=== PATIENT | male | born 1980 | race Caucasian/White ===

== ENCOUNTER 2020-12-28 13:25 | Inpatient (IN) | payer BC ==
[~2020-12-28] VITALS: Ht 187.9 cm; Wt 87.4 kg
[~2020-12-28 13:25] MED LIST: ACET-2650 PO; ALPRAZolam 0.25 MG (XANAX) TAB PO PRN; AMPH20CA5 PO; BISACODYL 10 MG SUPP (DULCOLAX) PR PRN; CALCIUM CARBONATE 500 MG (TUMS) TAB.CHEW PO PRN; DOCUSATE SODIUM 100 MG (COLACE) CAP PO PRN; ENOX30DI4 SQ; FLEET ENEMA ADULT 1 EA BTL PR PRN; GABA-486 PO; IPRA3AMP31 IH; LACTULOSE SYRUP 10GM/15ML (ENULOSE) 30ML UDC PO PRN; LOPERAMIDE 2 MG (IMODIUM) TABLET PO PRN; MAGN400O7 PO; METH-732 PO; ONDA4TAB11 PO; ONDANSETRON 4 MG (ZOFRAN) ORAL DISSOLVE TAB PO PRN; OXC5T PO; POLY17PO6 PO; SENN-145 PO; diphenhydrAMINE 25 MG TAB (BENADRYL) PO PRN; guaiFENesin/CODEINE (ROBITUSSIN AC) 10ML UDC PO PRN
--- OUTSIDE RECORDS SUMMARY | 2020-12-28 13:48 | XMS REPORT ---
Author Author Kahlil Mayo Organization [facility] Address [address] [place], [place] [id number] Care Team Providers Care Digital Computer Systems Analyst Name Role Phone Michelle Mayo PCP Michelle Mayo PreferredProvider Allergies and Adverse Reactions Not available. Plan of Treatment Not available. Medications Active Name Start Date Estimated Completion Date SIG Co mments Adderall XR 20 mg oral capsule,extended release 24hr 11/01/2020 12/01/2020 take 1 capsule (20 mg) by oral route once daily in the morning upon awakening for 30 days Discontinued Name Start Date Discontinued Date SIG Comments Adderall 10 mg oral tablet 08/10/2020 take 1 tablet (10 mg) by oral route 2 times per day before breakfast and at noon Problem List Description Status Onset Attention deficit hyperactivity disorder (ADHD), predo minantly inattentive type Active 04/17/2020 Vital Signs Date Time BP-Sys(mm[Hg] BP-[place](mm[Hg]) HR(bpm) RR(rpm) Temp WT HT HC BMI BSA BMI Percentile O2 Sat(%) 08/10/2020 1:10:00 PM 142 mm[Hg] 80 mm[Hg] 100 {beats}/min 98.1 F 204.75 lbs 74 in 26.2881 kg/m2 2.2020 m2 99 % 04/13/2020 2:20:00 PM 122 mm[Hg] 83 mm[Hg] 105 {beats}/min 16 rpm 99 F 217 lbs 74 in 27.86 kg/m2 2.27 m2 96 % Social History Name Description Comments Tobacco Never smoker History of Procedures Not available. Results Summary Not available. History Of Immunizations Not available. History of Past Illness Name Date of Onset Comments Attention deficit hyperactivity disorder (ADHD), predo minantly inattentive type 04/17/2020 Attention deficit hyperactivity disorder (ADHD), predo minantly inattentive type Fe2020 2:22PM Attention deficit hyperactivity disorder (ADHD), predo minantly inattentive type Aug 10 2020 1:14PM Attention deficit hyperactivity disorder (ADHD), predo minantly inattentive type Nov 14 2020 11:21AM Payers Insurance Name Company Name Plan Name Plan Number Policy Number [employer] Group [id number] N/A History of Encounters Visit Date Visit Type Provider 11/09/2020 Office visit Michelle CALDERON 08/10/2020 Office visit Michelle CALDERON 04/13/2020 Office visit Michelle CALDERON
[2020-12-28 13:57] VITALS: BP 134/89
[2020-12-28] MEDS ORDERED: RT-ALBUTEROL/IPRATROPIUM 3 ML (DUONEB) VIAL IH PRN (14:15)
[2020-12-28] MEDS ORDERED: ONDANSETRON 4 MG (ZOFRAN) ORAL DISSOLVE TAB PO PRN (14:15)
[2020-12-28] MEDS ORDERED: NON-FORMULARY MEDICATION 1 EA EA (Acetaminophen (Tylenol Arthritis) 650 MG) PO PRN (14:15)
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
[2020-12-28] MEDS ORDERED: LACTULOSE SYRUP 10GM/15ML (ENULOSE) 30ML UDC PO ONE (16:45)
[2020-12-28] MEDS ORDERED: SENNA W/DOCUSATE (SENOKOT S) TABLET PO ONE (16:45)
[2020-12-28] MEDS ORDERED: BISACODYL 10 MG SUPP (DULCOLAX) PR ONE (16:45)
[2020-12-28] MEDS ORDERED: polyethylene glycoL POWDER 17 GM (MIRALAX) PACK PO ONE ×2 (16:45→17:30)
[2020-12-28] MEDS ORDERED: FLU QUADRIvalent (3YOA+) 60 mcg/0.5 ml 2021-22(AFLURIA) IM ONE (16:45)
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
[2020-12-28] MEDS ORDERED: MAGNESIUM CITRATE 300 ML BTL PO PRN (17:00)
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
[2020-12-28] MEDS: ENOXAPARIN 30 MG/0.3 ML (LOVENOX) SYR SQ SCH (18:03)
[2020-12-28] MEDS: ACETAMINOPHEN 325 MG TABLET PO PRN (18:30)
[2020-12-28 20:20] VITALS: BP 131/78
[2020-12-28] MEDS ORDERED: polyethylene glycoL POWDER 17 GM (MIRALAX) PACK PO SCH (21:00)
[2020-12-28] MEDS: polyethylene glycoL POWDER 17 GM (MIRALAX) PACK PO SCH (21:45)
[2020-12-28] MEDS: SENNA W/DOCUSATE (SENOKOT S) TABLET PO SCH ×2 (22:00→22:01)
[2020-12-28] MEDS: DOCUSATE SODIUM 100 MG (COLACE) CAP PO SCH (22:01)
[2020-12-28] MEDS: METHOCARBAMOL 750 MG (ROBAXIN) TAB PO SCH (22:02)
[2020-12-28] MEDS: GABAPENTIN 100 MG (NEURONTIN) CAP PO SCH (22:02)
[2020-12-29] MEDS: ACETAMINOPHEN 325 MG TABLET PO PRN ×2 (03:26→18:00)
[2020-12-29 05:37] LABS: BASOPHILS # (AUTO) 0.1 10^3/uL (0.0-0.1); BASOPHILS % (AUTO) 1 % (0-10); EOSINOPHILS # (AUTO) 0.4 10^3/uL (0.0-0.3); EOSINOPHILS % (AUTO) 3 % (0-10); HEMATOCRIT 31 % (40-54); HEMOGLOBIN 10.4 g/dL (13.3-17.7); LYMPHOCYTES # (AUTO) 1.7 10^3/uL (1.0-4.0); LYMPHOCYTES % (AUTO) 14 % (12-44); MEAN CORPUSCULAR HEMOGLOBIN 28 pg (25-34); MEAN CORPUSCULAR HGB CONC 33 g/dL (32-36); MEAN CORPUSCULAR VOLUME 84 fL (80-99); MEAN PLATELET VOLUME 8.2 fL (9.0-12.2); MONOCYTES # (AUTO) 1.1 10^3/uL (0.0-1.0); MONOCYTES % (AUTO) 9 % (0-12); NEUTROPHILS # (AUTO) 8.7 10^3/uL (1.8-7.8); NEUTROPHILS % (AUTO) 72 % (42-75); PLATELET COUNT 687 10^3/uL (130-400); WHITE BLOOD COUNT 12.2 10^3/uL (4.3-11.0)
[2020-12-29 05:50] LABS: ALBUMIN 3.4 GM/DL (3.2-4.5); POTASSIUM 4.4 MMOL/L (3.6-5.0)
[2020-12-29] MEDS: ENOXAPARIN 30 MG/0.3 ML (LOVENOX) SYR SQ SCH (05:51)
[2020-12-29 05:52] LABS: CALCIUM 9.4 MG/DL (8.5-10.1)
[2020-12-29 05:55] LABS: BILIRUBIN,TOTAL 0.6 MG/DL (0.1-1.0)
[2020-12-29 05:56] LABS: CREATININE SERUM 0.76 MG/DL (0.60-1.30)
[2020-12-29 08:00] VITALS: BP 133/74
[2020-12-29] MEDS: METHOCARBAMOL 750 MG (ROBAXIN) TAB PO SCH ×3 (08:09→21:04)
[2020-12-29] MEDS: SENNA W/DOCUSATE (SENOKOT S) TABLET PO SCH ×4 (08:10→21:04)
[2020-12-29] MEDS: DOCUSATE SODIUM 100 MG (COLACE) CAP PO SCH ×2 (08:10→21:04)
[2020-12-29] MEDS: GABAPENTIN 100 MG (NEURONTIN) CAP PO SCH ×3 (08:10→21:03)
[2020-12-29] MEDS: [UNRECOGNIZED DRUG - OTHER] PO SCH (09:00)
[2020-12-29] MEDS: DEXTROAMPHETAMINE PO SCH (09:00)
[2020-12-29] MEDS: AMPHETAMINE PO SCH (09:00)
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
[2020-12-29] MEDS: polyethylene glycoL POWDER 17 GM (MIRALAX) PACK PO SCH ×2 (09:52→21:05)
[2020-12-29] MEDS: MILK OF MAGNESIA 400 MG/5 ML 30 ML UDC PO SCH (09:52)
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
--- NOTE | 2020-12-29 11:53 | Occupational Ther Daily Note ---
OT Current Status-Daily Note Subjective Pt alert, lying in bed. Pt agrees to therapy. Mental Status/Objective Patient Orientation: Person, Place, Time, Situation Attachments: Other-See Comments (TLSO, c-collar) ADL-Treatment PT/OT cotreat ([id number]), 2 clinicians required to decrease fall risk, increase transfer/mobility, decrease pain and anxiety. OT focusing on ADLs and functional mobility while PT focusing on transfers and bed mobility. Pt agrees to shower. C-collar in place throughout shower and was replaced with dry one at end of shower. See PT notes for bed mobility. Pt transferred from EOB to shower chair with cutout using FWW, min A. Shower chair rolled into shower and pt able to complete upper body, aida area, B upper legs. Pt required assist (SO assisted pt in shower) while sitting on shower chair with buttocks and B lower legs and feet. Pt required assisted with lower body. Pt was assisted with C- collar and TLSO. Assisted pt with donning shirt, L arm, head the R arm. Pt able to thread pants over feet then stood with CGA for balance while pt hiked pants over hips. Assist with donning L sock. SO assisted pt with oral care and grooming, set up. Assist x2 for EOB to supine due to pt's increased anxiety. Therapy Code Descriptions/Definitions Functional [place] Measure: 0=Not Assessed/NA 4=Minimal Assistance 1=Total Assistance 5=Supervision or Setup 2=Maximal Assistance 6=Modified [place] 3=Moderate Assistance 7=Complete IndependenceSCALE: Activities may be completed with or without assistive devices. 9-Gyvzavocum-jkiapnf completes the activity by him/herself with no assistance from a helper. 5-Set-up or Clean-up Assistance-helper sets up or cleans up; patient completes activity. [place] assists only prior to or following the activity. 4-Supervision or Touching Assistance-helper provides verbal cues and/or touching/steadying and/or contact guard assistance as patient completes activity. Assistance may be provided throughout the activity or intermittently. 3-Partial/Moderate Assistance-helper does LESS THAN HALF the effort. [place] lifts, holds or supports trunk or limbs, but provides less than half the effort. 2-Substantial/Maximal Assistance-helper does MORE THAN HALF the effort. [place] lifts or holds trunk or limbs and provides more than half the effort. 8-Eyclzdacg-oybpvj does ALL the effort. Patient does none of the effort to complete the activity. Or, the assistance of 2 or more helpers is required for the patient to complete the activity. If activity was not attempted, code reason: 7-Patient Refused. 9-Not Applicable-not attempted and the patient did not perform the activity before the current illness, exacerbation or injury. 10-Not Attempted due to Environmental Limitations-(lack of equipment, weather restraints, etc.). 88-Not Attempted due to Medical Conditions or Safety Concerns. Oral Hygiene (QC): 5 Bathing Location: L Arm, R Arm, L Upper Leg, R Upper Leg, Chest, Abdomen Shower/Bathe Self (QC): 3 (Mod A) Upper Body Dressing (QC): 2 (Max A) Lower Body Dressing (QC): 2 (Max A) On/Off Footwear: 2 Pt demonstrated and verbalized anxiety throughout session requiring frequent breaks to use personal calming strategies before continuing to next task. Education OT Patient Education: Exercise program Teaching Recipient: Patient, Significant Other Teaching Methods: Demonstration, Handout, Discussion Response to Teaching: Verbalize Understanding, Return Demonstration OT Short Term Goals Short Term Goals Time Frame: Jan 04, 2021 Eatin Oral hygiene: 4 Toileting hygiene: 3 Shower/bathe self: 3 Upper body dressin Lower body dressin Putting on/taking off footwear: 5 OT Senior Windows Administrator Goals Shelter Goals Time Frame: Jan 13, 2021 Eating (QC): 6 Oral Hygiene (QC): 6 Toileting Hygiene (QC): 6 Shower/Bathe Self (QC): 5 Upper Body Dressing (QC): 5 Lower Body Dressing (QC): 5 On/Off Footwear (QC): 6 1=Demonstrate adherence to instructed precautions during ADL tasks. 2=Patient will verbalize/demonstrate understanding of assistive devices/modifications for ADL. 3=Patient will improve strength/tolerance for activity to enable patient to perform ADL's. OT Education/Plan Problem List/Assessment Assessment: Decreased Activ Tolerance, Dependent Transfers, Impaired Bed Mobility, Impaired Funct Balance, Impaired Self-Care Skills Discharge Recommendations Plan/Recommendations: Continue POC Treatment Plan/Plan of Care Patient would benefit from OT for education, treatment and training to promote independence in ADL's, mobility, safety and/or upper extremity function for ADL's. Plan of Care: ADL Retraining, Functional Mobility, Group Exercise/Act as Ind, Orthotic Fitting/Training, UE Funct Exercise/Act Treatment Duration: Jan 13, 2021 Frequency: At least 5 of 7 days/Wk (IRF) Estimated Hrs Per Day: 1.5 hours per day Agreement: Yes Rehab Potential: Fair Time/GCodes Start Time: 10:30 Stop Time: 12:00 Total Time Billed (hr/min): 90 Billed Treatment Time 1 Visit- ADL 6 (90 min) PITA MENESES Dec 29, 2020 11:53
--- NOTE | 2020-12-29 12:08 | Physical Therapy Daily Note ---
PT Daily Note-Current Subjective Pt laying Supine in bed upon arrival. S/O present. Pt agrees to PT/OT co- treat. Pain Location Body Site: Side Pain Description: Ache Mental Status Patient Orientation: Person, Place, Time, Situation Attachments: Other-See Comments (TLSO Brace & Cervical Collar) Transfers SCALE: Activities may be completed with or without assistive devices. 2-Jyabahnqeh-muovrvt completes the activity by him/herself with no assistance from a helper. 5-Set-up or Clean-up Assistance-helper sets up or cleans up; patient completes activity. [place] assists only prior to or following the activity. 4-Supervision or Touching Assistance-helper provides verbal cues and/or touchin g/steadying and/or contact guard assistance as patient completes activity. Assistance may be provided throughout the activity or intermittently. 3-Partial/Moderate Assistance-helper does LESS THAN HALF the effort. [place] lifts, holds or supports trunk or limbs, but provides less than half the effort. 2-Substantial/Maximal Assistance-helper does MORE THAN HALF the effort. [place] lifts or holds trunk or limbs and provides more than half the effort. 9-Txvpaswbr-tutcsg does ALL the effort. Patient does none of the effort to complete the activity. Or, the assistance of 2 or more helpers is required for the patient to complete the activity. If activity was not attempted, code reason: 7-Patient Refused. 9-Not Applicable-not attempted and the patient did not perform the activity before the current illness, exacerbation or injury. 10-Not Attempted due to Environmental Limitations-(lack of equipment, weather restraints, etc.). 88-Not Attempted due to Medical Conditions or Safety Concerns. Lying to Sitting/Side of Bed(Q: 3 Sit to Stand (QC): 3 Weight Bearing Right Lower Extremity: Right Non Weight Bearing Exercises Supine Ex: Ankle pumps, Quad Set, Glut sets, Heel Slides, Straight leg raise, Hip abd/add Supine Reps: 15 Seated Therapy Exercises: Ankle pumps, Long arc quads, Hip flexion Seated Reps: 15 Treatments Pt completes Supine EX in bed to prepare for get out of bed. PT/OT cotreat ([id number]), 2 clinicians required to decrease fall risk, increase transfer/mobility, decrease pain and anxiety. OT focusing on ADLs and functional mobility while PT focusing on transfers and bed mobility. Pt agrees to shower. C-collar in place throughout shower and was replaced with dry one at end of shower. See PT notes for bed mobility. Pt transferred from EOB to shower chair with cutout using FWW, min A. Shower chair rolled into shower and pt able to complete upper body, aida area, B upper legs. Pt required assist (SO assisted pt in shower) while sitting on shower chair with buttocks and B lower legs and feet. Pt required assisted with lower body. PT departs and OT continu es tx. [id number]: Pt is given and reviews written HEP for Supine & Seated Ex. Pt resting in bed w/All needs met, call light in hand. Assessment Current Status: Good Progress Pt is sore and reports discomfort with moving. Pt is motivated and wants to complete exercise & tx to progress for home. PT Short Term Goals Short Term Goals Time Frame: Jan 18, 2021 Roll Left & Right: 4 Sit to lyin Lying to sitting on side of be: 4 Sit to stand: 4 Chair/joh-js-sxwen transfer: 4 Toilet transfer: 4 Car transfer: 4 Walk 10 feet: 3 Walk 50 feet with two turns: 3 Walk 150 feet: 3 Walking 10ft on uneven surface: 3 1 step (curb): 3 4 steps: 3 Picking up objects: 3 Does pt use a wc or scooter: Yes Wheel 50ft w/2 turns: 6 Wheel 150 feet: 6 Type: Manual PT Advertising Campaign Manager Goals Prison Goals PT Prison Goals Time Frame: Feb 01, 2021 Roll Left & Right (QC): 5 Sit to Lying (QC): 5 Lying-Sitting on Side/Bed(QC): 5 Sit to Stand (QC): 5 Chair/Pxz-bd-Zgjos Xfer(QC): 5 Toilet Transfer (QC): 5 Car Transfer (QC): 5 Does the Patient Walk: Yes Walk 10 feet (QC): 5 Walk 50ft with 2 Turns (QC): 5 Walk 150 ft (QC): 4 Walking 10ft on Uneven Surface: 4 1 Step (curb) (QC): 4 4 Steps (QC): 4 12 Steps (QC): 4 Picking up an Object (QC): 4 Does the Pt use WC or Scooter?: Yes Wheel 50 feet with 2 turns (QC: 6 Type: Manual Wheel 150 feet: 6 Type: Manual PT Plan Problem List Problem List: Activity Tolerance, Functional Strength, Transfer Treatment/Plan Treatment Plan: Continue Plan of Care Treatment Plan: Bed Mobility, Education, Functional Activity Janki, Functional Strength, Group Therapy, Gait, Safety, Therapeutic Exercise, Transfers Treatment Duration: Mar 08, 2021 Frequency: At least 5 of 7 days/Wk (IRF) Estimated Hrs Per Day: 1.5 hours per day Patient and/or Family Agrees t: Yes Safety Risks/Education Patient Education: Transfer Techniques, Correct Positioning Teaching Recipient: Patient Teaching Methods: Discussion Response to Teaching: Verbalize Understanding Time/GCodes Time In: 1015 Time Out: 1100 Total Billed Treatment Time: 45 Total Billed Treatment 1, EX (15m) & FA x2 (30m) Co-treat w/OT for 30m ([id number]) [id number]: 1, EX (15m) KELI ALEXANDER SHELL ASSEMBLER Dec 29, 2020 12:08
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
[2020-12-29] MEDS ORDERED: ALPRAZolam 0.5 MG (XANAX) TAB PO PRN (18:15)
[2020-12-29 19:52] VITALS: BP 120/59
[2020-12-29] MEDS: DULoxetine 30 MG (CYMBALTA) CAP PO SCH (21:02)
[2020-12-29] MEDS: MELATONIN 3 MG TABLET PO PRN (21:03)
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
[2020-12-30 07:49] VITALS: BP 138/73
[2020-12-30] MEDS: DULoxetine 30 MG (CYMBALTA) CAP PO SCH ×2 (07:54→21:15)
[2020-12-30] MEDS: METHOCARBAMOL 750 MG (ROBAXIN) TAB PO SCH ×3 (07:54→21:15)
[2020-12-30] MEDS: ENOXAPARIN 40 MG/0.4 ML (LOVENOX) SYR SC SCH (07:55)
[2020-12-30] MEDS: GABAPENTIN 100 MG (NEURONTIN) CAP PO SCH ×3 (07:55→21:14)
[2020-12-30] MEDS: [UNRECOGNIZED DRUG - OTHER] PO SCH (07:55)
[2020-12-30] MEDS: AMPHETAMINE PO SCH (07:55)
[2020-12-30] MEDS: DEXTROAMPHETAMINE PO SCH (07:55)
[2020-12-30] MEDS: MILK OF MAGNESIA 400 MG/5 ML 30 ML UDC PO SCH (07:56)
[2020-12-30] MEDS: polyethylene glycoL POWDER 17 GM (MIRALAX) PACK PO SCH ×2 (07:56→20:24)
[2020-12-30] MEDS: SENNA W/DOCUSATE (SENOKOT S) TABLET PO SCH ×4 (07:56→21:14)
[2020-12-30] MEDS ORDERED: DULoxetine 30 MG (CYMBALTA) CAP PO SCH (08:00)
--- NOTE | 2020-12-30 10:12 | Physical Therapy Daily Note ---
PT Daily Note-Current Subjective Pt in bed w/ spouse in room upon arrival and agrees to tx. Pt states pain at 4/10 "everywhere" Pain Numeric Pain Scale: 4 Mental Status Patient Orientation: Person, Place, Time, Situation Transfers SCALE: Activities may be completed with or without assistive devices. 8-Wwlnrelkbw-twiffbk completes the activity by him/herself with no assistance from a helper. 5-Set-up or Clean-up Assistance-helper sets up or cleans up; patient completes activity. [place] assists only prior to or following the activity. 4-Supervision or Touching Assistance-helper provides verbal cues and/or to uching/steadying and/or contact guard assistance as patient completes activity. Assistance may be provided throughout the activity or intermittently. 3-Partial/Moderate Assistance-helper does LESS THAN HALF the effort. [place] lifts, holds or supports trunk or limbs, but provides less than half the effort. 2-Substantial/Maximal Assistance-helper does MORE THAN HALF the effort. [place] lifts or holds trunk or limbs and provides more than half the effort. 0-Ipxlnqcjx-slluft does ALL the effort. Patient does none of the effort to complete the activity. Or, the assistance of 2 or more helpers is required for the patient to complete the activity. If activity was not attempted, code reason: 7-Patient Refused. 9-Not Applicable-not attempted and the patient did not perform the activity before the current illness, exacerbation or injury. 10-Not Attempted due to Environmental Limitations-(lack of equipment, weather restraints, etc.). 88-Not Attempted due to Medical Conditions or Safety Concerns. Roll Left & Right (QC): 4 Sit to Lying (QC): 3 Lying to Sitting/Side of Bed(Q: 4 Sit to Stand (QC): 3 Chair/Nrh-wx-Igtnm Xfer(QC): 3 Weight Bearing Right Lower Extremity: Right Non Weight Bearing Gait Training Does the Patient Walk?: Yes Distance: 75' x3 Walk 10 feet (QC): 3 Walk 50 ft with 2 Turns(QC): 3 Gait Persons Needed: 1 Gait Assistive Device: FWW Pt amb 75' x3 with Amada for stability, VC to keep WB precautions, and WC follow. Pt has swing to gait pattern, with NWB on R LE. Wheelchair Training Does the Pt Use a Wheelchair?: Yes Wheel 50 ft with 2 turns (QC): 5 Wheel 150 ft (QC): 5 Type of Wheelchair: Manual Exercises Supine Ex: Quad Set, Hip abd/add Supine Reps: 10 Treatments Pt supine to sit, VC to keep precautions. Pt sit to stand and transfers to WC Amada, then amb 75' x3. Pt fatigues quickly and requires frequent rest breaks. Pt states he feels dizzy during gait, subsides with rest breaks. pt then propels WC 150' and returns to bed. pt completes supine ex and remains in bed with family in room. Pt left with all needs met, call light in hand. Assessment Current Status: Fair Progress Pt improving endurance and gait. Still limited by pain for increasing mobility, and limited by precautions. With supine to sit and longer bouts of gait pt states dizziness that subsides with rest. PT Short Term Goals Short Term Goals Time Frame: Jan 18, 2021 Roll Left & Right: 4 Sit to lyin Lying to sitting on side of be: 4 Sit to stand: 4 Chair/omw-bo-vwbqp transfer: 4 Toilet transfer: 4 Car transfer: 4 Walk 10 feet: 3 Walk 50 feet with two turns: 3 Walk 150 feet: 3 Walking 10ft on uneven surface: 3 1 step (curb): 3 4 steps: 3 Picking up objects: 3 Does pt use a wc or scooter: Yes Wheel 50ft w/2 turns: 6 Wheel 150 feet: 6 Type: Manual PT Long-Term Goals Long-Term Goals PT Long-Term Goals Time Frame: Feb 01, 2021 Roll Left & Right (QC): 5 Sit to Lying (QC): 5 Lying-Sitting on Side/Bed(QC): 5 Sit to Stand (QC): 5 Chair/Uva-ki-Bochz Xfer(QC): 5 Toilet Transfer (QC): 5 Car Transfer (QC): 5 Does the Patient Walk: Yes Walk 10 feet (QC): 5 Walk 50ft with 2 Turns (QC): 5 Walk 150 ft (QC): 4 Walking 10ft on Uneven Surface: 4 1 Step (curb) (QC): 4 4 Steps (QC): 4 12 Steps (QC): 4 Picking up an Object (QC): 4 Does the Pt use WC or Scooter?: Yes Wheel 50 feet with 2 turns (QC: 6 Type: Manual Wheel 150 feet: 6 Type: Manual PT Plan Treatment/Plan Treatment Plan: Continue Plan of Care Treatment Plan: Bed Mobility, Education, Functional Activity Janki, Functional Strength, Group Therapy, Gait, Safety, Therapeutic Exercise, Transfers Treatment Duration: Mar 08, 2021 Frequency: At least 5 of 7 days/Wk (IRF) Estimated Hrs Per Day: 1.5 hours per day Patient and/or Family Agrees t: Yes Time/GCodes Time In: 930 Time Out: 1015 Total Billed Treatment Time: 45 Total Billed Treatment 1, GT x2, EX [employer]IZ [place]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
[2020-12-30] MEDS: DOCUSATE SODIUM 100 MG (COLACE) CAP PO SCH ×2 (11:26→21:14)
--- NOTE | 2020-12-30 11:48 | Occupational Ther Daily Note ---
OT Current Status-Daily Note Subjective Pt laying supine. Pt. reported pain. Nrsg notified. Pt agreed to therapy. Mental Status/Objective Patient Orientation: Person, Place, Time, Situation Attachments: Other-See Comments (TLSO, c-collar) ADL-Treatment Pt supine<-->sit EOB with assist. Pt donned TLSO with Min A, transferred EOB to w/c using FWW for support with Mod A. Pt ambulated to therapy room in standard w/c and engaged in therapeutic exercise while seated to increase strength and improve ADL performance. Monitored amount of resistance and pain and modified exercises accordingly. Yellow theraband was used as resistance, 10 reps were done of B bicep curls, B tricep curls, internal/external rotation, horizontal shoulder abduction. Pt engaged in B shoulder ~100* flexion/extension for 2 min using overhead mica. Pt participated in functional mobility exercise to strengthen UE. After session, pt laying supine with call light/phone in reach. All needs met in room. Notified nursing pt asking for pain medication. Therapy Code Descriptions/Definitions Functional [place] Measure: 0=Not Assessed/NA 4=Minimal Assistance 1=Total Assistance 5=Supervision or Setup 2=Maximal Assistance 6=Modified [place] 3=Moderate Assistance 7=Complete IndependenceSCALE: Activities may be completed with or without assistive devices. 6-Wuazaqwrmb-oedogjw completes the activity by him/herself with no assistance from a helper. 5-Set-up or Clean-up Assistance-helper sets up or cleans up; patient completes activity. [place] assists only prior to or following the activity. 4-Supervision or Touching Assistance-helper provides verbal cues and/or touching/steadying and/or contact guard assistance as patient completes activity. Assistance may be provided throughout the activity or intermittently. 3-Partial/Moderate Assistance-helper does LESS THAN HALF the effort. [place] lifts, holds or supports trunk or limbs, but provides less than half the effort. 2-Substantial/Maximal Assistance-helper does MORE THAN HALF the effort. [place] lifts or holds trunk or limbs and provides more than half the effort. 8-Rylpnlhvu-gbfnzd does ALL the effort. Patient does none of the effort to complete the activity. Or, the assistance of 2 or more helpers is required for the patient to complete the activity. If activity was not attempted, code reason: 7-Patient Refused. 9-Not Applicable-not attempted and the patient did not perform the activity before the current illness, exacerbation or injury. 10-Not Attempted due to Environmental Limitations-(lack of equipment, weather restraints, etc.). 88-Not Attempted due to Medical Conditions or Safety Concerns. OT Short Term Goals Short Term Goals Time Frame: Jan 04, 2021 Eatin Oral hygiene: 4 Toileting hygiene: 3 Shower/bathe self: 3 Upper body dressin Lower body dressin Putting on/taking off footwear: 5 OT Parole Agent Goals Parole Agent Goals Time Frame: Jan 13, 2021 Eating (QC): 6 Oral Hygiene (QC): 6 Toileting Hygiene (QC): 6 Shower/Bathe Self (QC): 5 Upper Body Dressing (QC): 5 Lower Body Dressing (QC): 5 On/Off Footwear (QC): 6 1=Demonstrate adherence to instructed precautions during ADL tasks. 2=Patient will verbalize/demonstrate understanding of assistive devices/modifications for ADL. 3=Patient will improve strength/tolerance for activity to enable patient to perform ADL's. OT Education/Plan Problem List/Assessment Assessment: Decreased Activ Tolerance, Decreased UE Strength, Dependent Transfers, Impaired Funct Balance, Impaired Self-Care Skills, Restricted Funct UE ROM Discharge Recommendations Plan/Recommendations: Continue POC Treatment Plan/Plan of Care Patient would benefit from OT for education, treatment and training to promote independence in ADL's, mobility, safety and/or upper extremity function for ADL's. Plan of Care: ADL Retraining, Functional Mobility, Group Exercise/Act as Ind, Orthotic Fitting/Training, UE Funct Exercise/Act Treatment Duration: Jan 13, 2021 Frequency: At least 5 of 7 days/Wk (IRF) Estimated Hrs Per Day: 1.5 hours per day Agreement: Yes Rehab Potential: Fair Time/GCodes Start Time: 10:30 Stop Time: 11:30 Total Time Billed (hr/min): 60 Billed Treatment Time 1 Visit- Ex 4 (60 min) [id number] PITA MENESES Dec 30, 2020 11:48
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
--- NOTE | 2020-12-30 14:37 | Therapy Group Daily Note ---
Therapy Daily Group Note Patient Education Topic Home Safety, Fall Prevention, Home Safety, Exercises, Other List Below (Floor Transfers) Exercises LE Seated Exercise, UE Exercise Session Ratio (pt:therapist): 3:1 Goal of Session: Home Safety Strategies, UE/LE Strengthing Goal Met for this Session: Yes Pt Benefit of Group: Contributions to Others, F/U Use of Strategies @Home, Increased Functional Safety, Increased Functional Strength, Improved Cognition, Recognition of Peers, Socialization Other/Notes Pt propels self in to [facility] for OT/PT group. Group consisted of introductions (name, place living, trouble in childhood), socialization, seated UE/LE exercises, and educational topics involving home safety, fall risk prevention, and floor transfers. Pt introduced self appropriately, actively listened to peers and complete B UE/LE seated exercises. Pt acknowledged understanding by verbalizing understanding. Pt participated in a cognitive word activity. After session, pt amb back to room. Call light/phone in reach. All needs met in room. Start Time: 13:00 Stop Time: 14:00 Total Billed Treatment Time: 60 Total Billed Treatment 1, GRP MOIZ [place] NUCLEAR INSTRUCTOR Dec 30, 2020 14:37
[2020-12-30 20:40] VITALS: BP 120/64
[2020-12-30] MEDS: MELATONIN 3 MG TABLET PO PRN (21:14)
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
[2020-12-31 08:32] VITALS: BP 132/78
[2020-12-31] MEDS: AMPHETAMINE PO SCH (08:33)
[2020-12-31] MEDS: DEXTROAMPHETAMINE PO SCH (08:33)
[2020-12-31] MEDS: [UNRECOGNIZED DRUG - OTHER] PO SCH (08:33)
[2020-12-31] MEDS: MILK OF MAGNESIA 400 MG/5 ML 30 ML UDC PO SCH (08:34)
[2020-12-31] MEDS: SENNA W/DOCUSATE (SENOKOT S) TABLET PO SCH ×4 (08:34→21:37)
[2020-12-31] MEDS: polyethylene glycoL POWDER 17 GM (MIRALAX) PACK PO SCH ×2 (08:47→21:52)
[2020-12-31] MEDS: ENOXAPARIN 40 MG/0.4 ML (LOVENOX) SYR SC SCH (08:47)
[2020-12-31] MEDS: METHOCARBAMOL 750 MG (ROBAXIN) TAB PO SCH ×3 (08:47→21:38)
[2020-12-31] MEDS: GABAPENTIN 100 MG (NEURONTIN) CAP PO SCH ×3 (08:47→21:37)
[2020-12-31] MEDS: DULoxetine 30 MG (CYMBALTA) CAP PO SCH ×2 (08:47→21:37)
[2020-12-31] MEDS: DOCUSATE SODIUM 100 MG (COLACE) CAP PO SCH ×2 (08:47→21:38)
--- NOTE | 2020-12-31 11:17 | Physical Therapy Daily Note ---
PT Daily Note-Current Subjective Pt in bed upon arrival and agrees to tx. Pt states pain but doesn't rate out of 10 Mental Status Patient Orientation: Person, Place, Time, Situation Transfers SCALE: Activities may be completed with or without assistive devices. 3-Hacjgvwgzg-sbousde completes the activity by him/herself with no assistance from a helper. 5-Set-up or Clean-up Assistance-helper sets up or cleans up; patient completes activity. [place] assists only prior to or following the activity. 4-Supervision or Touching Assistance-helper provides verbal cues and/or touching/steadying and/or contact guard assistance as patient completes activity. Assistance may be provided throughout the activity or intermittently. 3-Partial/Moderate Assistance-helper does LESS THAN HALF the effort. [place] lifts, holds or supports trunk or limbs, but provides less than half the effort. 2-Substantial/Maximal Assistance-helper does MORE THAN HALF the effort. [place] lifts or holds trunk or limbs and provides more than half the effort. 6-Jynzfxfqs-ufbdlf does ALL the effort. Patient does none of the effort to complete the activity. Or, the assistance of 2 or more helpers is required for the patient to complete the activity. If activity was not attempted, code reason: 7-Patient Refused. 9-Not Applicable-not attempted and the patient did not perform the activity before the current illness, exacerbation or injury. 10-Not Attempted due to Environmental Limitations-(lack of equipment, weather restraints, etc.). 88-Not Attempted due to Medical Conditions or Safety Concerns. Sit to Stand (QC): 3 Chair/Tng-sv-Vjbpq Xfer(QC): 3 Amada and VC to keep precautions Weight Bearing Right Lower Extremity: Right Non Weight Bearing Exercises Seated Therapy Exercises: Ankle pumps, Sit to stand, Long arc quads, Chair press-ups, Hip flexion, Hip abd/add, Glut set Seated Reps: 10 Treatments Pt already EOB, sit to stand Amada and transfers to recliner. Pt completes seated ex and is given new HEP forms for seated and supine exercise. Pt remains in recliner with all needs met, call light in hand. Assessment Current Status: Fair Progress Pt limited by pain and precautions. Pt extremely fatigued today PT Short Term Goals Short Term Goals Time Frame: Jan 18, 2021 Roll Left & Right: 4 Sit to lyin Lying to sitting on side of be: 4 Sit to stand: 4 Chair/dbk-do-surbm transfer: 4 Toilet transfer: 4 Car transfer: 4 Walk 10 feet: 3 Walk 50 feet with two turns: 3 Walk 150 feet: 3 Walking 10ft on uneven surface: 3 1 step (curb): 3 4 steps: 3 Picking up objects: 3 Does pt use a wc or scooter: Yes Wheel 50ft w/2 turns: 6 Wheel 150 feet: 6 Type: Manual PT Solar Electric Practitioner Goals Skilled Nursing Goals PT Solar Electric Practitioner Goals Time Frame: Feb 01, 2021 Roll Left & Right (QC): 5 Sit to Lying (QC): 5 Lying-Sitting on Side/Bed(QC): 5 Sit to Stand (QC): 5 Chair/Wcq-wp-Olyrc Xfer(QC): 5 Toilet Transfer (QC): 5 Car Transfer (QC): 5 Does the Patient Walk: Yes Walk 10 feet (QC): 5 Walk 50ft with 2 Turns (QC): 5 Walk 150 ft (QC): 4 Walking 10ft on Uneven Surface: 4 1 Step (curb) (QC): 4 4 Steps (QC): 4 12 Steps (QC): 4 Picking up an Object (QC): 4 Does the Pt use WC or Scooter?: Yes Wheel 50 feet with 2 turns (QC: 6 Type: Manual Wheel 150 feet: 6 Type: Manual PT Plan Treatment/Plan Treatment Plan: Continue Plan of Care Treatment Plan: Bed Mobility, Education, Functional Activity Janki, Functional Strength, Group Therapy, Gait, Safety, Therapeutic Exercise, Transfers Treatment Duration: Mar 08, 2021 Frequency: At least 5 of 7 days/Wk (IRF) Estimated Hrs Per Day: 1.5 hours per day Patient and/or Family Agrees t: Yes Time/GCodes Time In: 1058 Time Out: 1109 Total Billed Treatment Time: 11 Total Billed Treatment 1Anum [place] FOOD AND BEVERAGE SERVER Dec 31, 2020 11:17
[2020-12-31 20:03] VITALS: BP 107/70
[2020-12-31] MEDS: MELATONIN 3 MG TABLET PO PRN (21:38)
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
[2021-01-01 07:30] VITALS: BP 122/79
[2021-01-01] MEDS: DOCUSATE SODIUM 100 MG (COLACE) CAP PO SCH ×2 (07:59→21:51)
[2021-01-01] MEDS: DULoxetine 30 MG (CYMBALTA) CAP PO SCH ×2 (07:59→21:50)
[2021-01-01] MEDS: ACETAMINOPHEN 325 MG TABLET PO PRN (07:59)
[2021-01-01] MEDS: SENNA W/DOCUSATE (SENOKOT S) TABLET PO SCH ×4 (07:59→21:51)
[2021-01-01] MEDS: METHOCARBAMOL 750 MG (ROBAXIN) TAB PO SCH ×3 (07:59→21:51)
[2021-01-01] MEDS: GABAPENTIN 100 MG (NEURONTIN) CAP PO SCH ×3 (08:00→21:51)
[2021-01-01] MEDS: ENOXAPARIN 40 MG/0.4 ML (LOVENOX) SYR SC SCH (08:00)
[2021-01-01] MEDS: polyethylene glycoL POWDER 17 GM (MIRALAX) PACK PO SCH ×2 (08:00→21:50)
[2021-01-01] MEDS: AMPHETAMINE PO SCH (09:00)
[2021-01-01] MEDS: DEXTROAMPHETAMINE PO SCH (09:00)
[2021-01-01] MEDS: [UNRECOGNIZED DRUG - OTHER] PO SCH (09:00)
[2021-01-01] MEDS: MILK OF MAGNESIA 400 MG/5 ML 30 ML UDC PO SCH (09:03)
[2021-01-01 19:07] VITALS: BP 124/71
[2021-01-01] MEDS: MELATONIN 3 MG TABLET PO PRN (21:51)
[2021-01-02 06:42] LABS: BASOPHILS # (AUTO) 0.1 10^3/uL (0.0-0.1); BASOPHILS % (AUTO) 1 % (0-10); EOSINOPHILS # (AUTO) 0.2 10^3/uL (0.0-0.3); EOSINOPHILS % (AUTO) 4 % (0-10); HEMATOCRIT 33 % (40-54); HEMOGLOBIN 10.6 g/dL (13.3-17.7); LYMPHOCYTES # (AUTO) 1.4 10^3/uL (1.0-4.0); LYMPHOCYTES % (AUTO) 24 % (12-44); MEAN CORPUSCULAR HEMOGLOBIN 28 pg (25-34); MEAN CORPUSCULAR HGB CONC 33 g/dL (32-36); MEAN CORPUSCULAR VOLUME 86 fL (80-99); MEAN PLATELET VOLUME 8.2 fL (9.0-12.2); MONOCYTES # (AUTO) 0.7 10^3/uL (0.0-1.0); MONOCYTES % (AUTO) 11 % (0-12); NEUTROPHILS # (AUTO) 3.7 10^3/uL (1.8-7.8); NEUTROPHILS % (AUTO) 60 % (42-75); PLATELET COUNT 617 10^3/uL (130-400); WHITE BLOOD COUNT 6.1 10^3/uL (4.3-11.0)
[2021-01-02 06:56] LABS: ALBUMIN 3.4 GM/DL (3.2-4.5)
[2021-01-02 06:57] LABS: POTASSIUM 4.3 MMOL/L (3.6-5.0)
[2021-01-02 06:58] LABS: CALCIUM 9.8 MG/DL (8.5-10.1)
[2021-01-02 07:01] LABS: BILIRUBIN,TOTAL 0.4 MG/DL (0.1-1.0)
[2021-01-02 07:03] LABS: CREATININE SERUM 0.72 MG/DL (0.60-1.30)
[2021-01-02 07:28] VITALS: BP 132/77
[2021-01-02] MEDS: GABAPENTIN 100 MG (NEURONTIN) CAP PO SCH ×3 (07:48→22:13)
[2021-01-02] MEDS: DULoxetine 30 MG (CYMBALTA) CAP PO SCH ×2 (07:48→22:12)
[2021-01-02] MEDS: ENOXAPARIN 40 MG/0.4 ML (LOVENOX) SYR SC SCH (07:48)
[2021-01-02] MEDS: SENNA W/DOCUSATE (SENOKOT S) TABLET PO SCH ×3 (07:49→22:12)
[2021-01-02] MEDS: METHOCARBAMOL 750 MG (ROBAXIN) TAB PO SCH ×3 (07:49→22:12)
[2021-01-02] MEDS: ACETAMINOPHEN 325 MG TABLET PO PRN (07:50)
[2021-01-02] MEDS: DOCUSATE SODIUM 100 MG (COLACE) CAP PO SCH ×2 (07:51→22:12)
[2021-01-02] MEDS: [UNRECOGNIZED DRUG - OTHER] PO SCH (09:00)
[2021-01-02] MEDS: MILK OF MAGNESIA 400 MG/5 ML 30 ML UDC PO SCH (09:00)
[2021-01-02] MEDS: AMPHETAMINE PO SCH (09:00)
[2021-01-02] MEDS: DEXTROAMPHETAMINE PO SCH (09:00)
[2021-01-02] MEDS: polyethylene glycoL POWDER 17 GM (MIRALAX) PACK PO SCH (09:00)
--- NOTE | 2021-01-02 10:06 | Physical Therapy Daily Note ---
PT Daily Note-Current Subjective Pt in bed upon arrival w/ spouse in room and agrees to tx. Pt states pain in back, doesn't rate out of 10. Pain increases when pt WB through UE during amb Mental Status Patient Orientation: Person, Place, Time, Situation Transfers SCALE: Activities may be completed with or without assistive devices. 0-Vatgbyojhp-vuqutna completes the activity by him/herself with no assistance from a helper. 5-Set-up or Clean-up Assistance-helper sets up or cleans up; patient completes activity. [place] assists only prior to or following the activity. 4-Supervision or Touching Assistance-helper provides verbal cues and/or touching/steadying and/or contact guard assistance as patient completes activity. Assistance may be provided throughout the activity or intermittently. 3-Partial/Moderate Assistance-helper does LESS THAN HALF the effort. [place] lifts, holds or supports trunk or limbs, but provides less than half the effort. 2-Substantial/Maximal Assistance-helper does MORE THAN HALF the effort. [place] lifts or holds trunk or limbs and provides more than half the effort. 0-Cpqkzllfe-cvfxuf does ALL the effort. Patient does none of the effort to complete the activity. Or, the assistance of 2 or more helpers is required for the patient to complete the activity. If activity was not attempted, code reason: 7-Patient Refused. 9-Not Applicable-not attempted and the patient did not perform the activity before the current illness, exacerbation or injury. 10-Not Attempted due to Environmental Limitations-(lack of equipment, weather restraints, etc.). 88-Not Attempted due to Medical Conditions or Safety Concerns. Sit to Stand (QC): 4 Weight Bearing Right Lower Extremity: Right Non Weight Bearing Gait Training Does the Patient Walk?: Yes Distance: 100' x4 Walk 10 feet (QC): 4 Walk 50 ft with 2 Turns(QC): 4 Gait Persons Needed: 1 Gait Assistive Device: FWW Pt amb w/ swing to gait w/ FWW and CGA. Pt states "If it weren't for the pain in my back, I feel I wouldn't need to take a break". Exercises NuStep Minutes: 10 NuStep Workload: 2 Treatments Pt supine to sit and sit to stand CGA, VC to keep precautions. Pt amb 100' x2 CG A to therapy gym. Pt completes NuStep at WL of 2 for 10 mins, NWB on R LE. Pt then amb back to room 100' x2 and returns to recliner. Pt remains in recliner with all needs met, call light in hand. Assessment Current Status: Good Progress Pt requires frequent RB throughout tx d/t pain. Pt limited d/t precautions and pain. Pt increasing strength, mobility, and endurance. Pt would be able to safely amb in house w/ FWW while NWB on R LE PT Short Term Goals Short Term Goals Time Frame: Jan 18, 2021 Roll Left & Right: 4 Sit to lyin Lying to sitting on side of be: 4 Sit to stand: 4 Chair/zsc-zt-upvpp transfer: 4 Toilet transfer: 4 Car transfer: 4 Walk 10 feet: 3 Walk 50 feet with two turns: 3 Walk 150 feet: 3 Walking 10ft on uneven surface: 3 1 step (curb): 3 4 steps: 3 Picking up objects: 3 Does pt use a wc or scooter: Yes Wheel 50ft w/2 turns: 6 Wheel 150 feet: 6 Type: Manual PT Correction Goals Correction Goals PT Correction Goals Time Frame: Feb 01, 2021 Roll Left & Right (QC): 5 Sit to Lying (QC): 5 Lying-Sitting on Side/Bed(QC): 5 Sit to Stand (QC): 5 Chair/Nyg-cv-Xdrvv Xfer(QC): 5 Toilet Transfer (QC): 5 Car Transfer (QC): 5 Does the Patient Walk: Yes Walk 10 feet (QC): 5 Walk 50ft with 2 Turns (QC): 5 Walk 150 ft (QC): 4 Walking 10ft on Uneven Surface: 4 1 Step (curb) (QC): 4 4 Steps (QC): 4 12 Steps (QC): 4 Picking up an Object (QC): 4 Does the Pt use WC or Scooter?: Yes Wheel 50 feet with 2 turns (QC: 6 Type: Manual Wheel 150 feet: 6 Type: Manual PT Plan Treatment/Plan Treatment Plan: Continue Plan of Care Treatment Plan: Bed Mobility, Education, Functional Activity Janki, Functional Strength, Group Therapy, Gait, Safety, Therapeutic Exercise, Transfers Treatment Duration: Mar 08, 2021 Frequency: At least 5 of 7 days/Wk (IRF) Estimated Hrs Per Day: 1.5 hours per day Patient and/or Family Agrees t: Yes Time/GCodes Time In: 915 Time Out: 1015 Total Billed Treatment Time: 60 Total Billed Treatment 1, GT x3, EX MOIZ [place] MANAGER SOCIAL Jan 02, 2021 10:06
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
--- NOTE | 2021-01-02 11:28 | Occupational Ther Daily Note ---
OT Current Status-Daily Note Subjective Pt supine in bed, alert. Pt reported pain., did not rate. Agreed to therapy. Mental Status/Objective Patient Orientation: Person, Place, Time, Situation Attachments: Other-See Comments (c-collar, TLSO, R LE cast) ADL-Treatment 1st session ([id number]): Pt agrees to shower. Surgical incisions, IV, and cast were covered. Pt EOB to standing pivot transfer using Fww for stability to safely transfer to standard w/c. Pt performed standing pivot transfer to [facility] to increase height in shower. VC given for pt to use grab bars for transfer. S.O. proceeded to assist pt with shower and dressing. STEVEN educated pt on which LE to place in clothing first when completing by self. Nrsg in room to change dressings and apply Alevyn. Pt able to go from EOB to supine by self using log roll technique. After therapy, pt lying in bed with call light/phone in reach. Nrsg and S.O. in room. All needs met. Therapy Code Descriptions/Definitions Functional [place] Measure: 0=Not Assessed/NA 4=Minimal Assistance 1=Total Assistance 5=Supervision or Setup 2=Maximal Assistance 6=Modified [place] 3=Moderate Assistance 7=Complete IndependenceSCALE: Activities may be completed with or without assistive devices. 9-Ditudvdtfx-ioppuax completes the activity by him/herself with no assistance from a helper. 5-Set-up or Clean-up Assistance-helper sets up or cleans up; patient completes activity. [place] assists only prior to or following the activity. 4-Supervision or Touching Assistance-helper provides verbal cues and/or touching/steadying and/or contact guard assistance as patient completes activity. Assistance may be provided throughout the activity or intermittently. 3-Partial/Moderate Assistance-helper does LESS THAN HALF the effort. [place] lifts, holds or supports trunk or limbs, but provides less than half the effort. 2-Substantial/Maximal Assistance-helper does MORE THAN HALF the effort. [place] lifts or holds trunk or limbs and provides more than half the effort. 0-Coctwzvyo-dchjva does ALL the effort. Patient does none of the effort to complete the activity. Or, the assistance of 2 or more helpers is required for the patient to complete the activity. If activity was not attempted, code reason: 7-Patient Refused. 9-Not Applicable-not attempted and the patient did not perform the activity before the current illness, exacerbation or injury. 10-Not Attempted due to Environmental Limitations-(lack of equipment, weather restraints, etc.). 88-Not Attempted due to Medical Conditions or Safety Concerns. Oral Hygiene (QC): 7 (Stating would do after lunch.) Bathing Location: L Arm, R Arm, L Upper Leg, R Upper Leg, Chest, Abdomen, Perineal Area Shower/Bathe Self (QC): 3 Other Treatment 2nd session([id number]): Pt engaged in therapeutic exercise to strengthen B UE and increase activity tolerance to improve ADL performance. Pt engaged in pipe tree task while seated with table raised. Patient completed task against gravity 3x's then with 1 lb weight 3x's. Pt tolerated well, no c/o pain with 1# wrist wts. EOB to supine independently. Pt able to doff L sock independently. Pat ient was left supine in bed with call light/phone within reach. All needs were met. OT Short Term Goals Short Term Goals Time Frame: Jan 04, 2021 Eatin Oral hygiene: 4 Toileting hygiene: 3 Shower/bathe self: 3 Upper body dressin Lower body dressin Putting on/taking off footwear: 5 OT Nursing Home Goals Nursing Home Goals Time Frame: Jan 13, 2021 Eating (QC): 6 Oral Hygiene (QC): 6 Toileting Hygiene (QC): 6 Shower/Bathe Self (QC): 5 Upper Body Dressing (QC): 5 Lower Body Dressing (QC): 5 On/Off Footwear (QC): 6 1=Demonstrate adherence to instructed precautions during ADL tasks. 2=Patient will verbalize/demonstrate understanding of assistive devices/modifications for ADL. 3=Patient will improve strength/tolerance for activity to enable patient to perform ADL's. OT Education/Plan Problem List/Assessment Assessment: Decreased Activ Tolerance, Impaired Self-Care Skills, Restricted Funct UE ROM Discharge Recommendations Plan/Recommendations: Continue POC Treatment Plan/Plan of Care Patient would benefit from OT for education, treatment and training to promote independence in ADL's, mobility, safety and/or upper extremity function for ADL's. Plan of Care: ADL Retraining, Functional Mobility, Group Exercise/Act as Ind, Orthotic Fitting/Training, UE Funct Exercise/Act Treatment Duration: Jan 13, 2021 Frequency: At least 5 of 7 days/Wk (IRF) Estimated Hrs Per Day: 1.5 hours per day Agreement: Yes Rehab Potential: Fair Time/GCodes Start Time: 11:00 (1400) Stop Time: 12:00 (1430) Total Time Billed (hr/min): 90 Billed Treatment Time 1 visit([id number])-ADL 4 (60 min) 1 visit ([id number]) EX 2 (30 min) PITA MENESES Jan 02, 2021 11:28
--- NOTE | 2021-01-02 13:55 | Physical Therapy Daily Note ---
PT Daily Note-Current Subjective Pt in bed upon arrival w/ spouse in room and agrees to tx. Pt states pain is worse than am tx. Mental Status Patient Orientation: Person, Place, Time, Situation Transfers SCALE: Activities may be completed with or without assistive devices. 4-Pjpnwigpck-szkqnvw completes the activity by him/herself with no assistance from a helper. 5-Set-up or Clean-up Assistance-helper sets up or cleans up; patient completes activity. [place] assists only prior to or following the activity. 4-Supervision or Touching Assistance-helper provides verbal cues and/or touching/steadying and/or contact guard assistance as patient completes activ ity. Assistance may be provided throughout the activity or intermittently. 3-Partial/Moderate Assistance-helper does LESS THAN HALF the effort. [place] lifts, holds or supports trunk or limbs, but provides less than half the effort. 2-Substantial/Maximal Assistance-helper does MORE THAN HALF the effort. [place] lifts or holds trunk or limbs and provides more than half the effort. 8-Kyomgjymc-apiexn does ALL the effort. Patient does none of the effort to complete the activity. Or, the assistance of 2 or more helpers is required for the patient to complete the activity. If activity was not attempted, code reason: 7-Patient Refused. 9-Not Applicable-not attempted and the patient did not perform the activity before the current illness, exacerbation or injury. 10-Not Attempted due to Environmental Limitations-(lack of equipment, weather restraints, etc.). 88-Not Attempted due to Medical Conditions or Safety Concerns. Sit to Stand (QC): 4 Weight Bearing Right Lower Extremity: Right Non Weight Bearing Gait Training Does the Patient Walk?: Yes Distance: 100' x2 Gait Assistive Device: FWW Treatments Pt supine to sit CGA, VC for precautions and sits EOB. Pt completes functional reaching activity while seated, as well as dons back brace. Pt then amb 100'x2 on ARU and returns to room. Pt returns to recliner in room and was left with all needs met, call light in hand. Assessment Current Status: Good Progress Pt increasing strength, endurance, and mobility. Pt limited by pain and precautions PT Short Term Goals Short Term Goals Time Frame: Jan 18, 2021 Roll Left & Right: 4 Sit to lyin Lying to sitting on side of be: 4 Sit to stand: 4 Chair/egz-os-gyhaa transfer: 4 Toilet transfer: 4 Car transfer: 4 Walk 10 feet: 3 Walk 50 feet with two turns: 3 Walk 150 feet: 3 Walking 10ft on uneven surface: 3 1 step (curb): 3 4 steps: 3 Picking up objects: 3 Does pt use a wc or scooter: Yes Wheel 50ft w/2 turns: 6 Wheel 150 feet: 6 Type: Manual PT Detention Goals Detention Goals PT Detention Goals Time Frame: Feb 01, 2021 Roll Left & Right (QC): 5 Sit to Lying (QC): 5 Lying-Sitting on Side/Bed(QC): 5 Sit to Stand (QC): 5 Chair/Inp-mi-Dekdv Xfer(QC): 5 Toilet Transfer (QC): 5 Car Transfer (QC): 5 Does the Patient Walk: Yes Walk 10 feet (QC): 5 Walk 50ft with 2 Turns (QC): 5 Walk 150 ft (QC): 4 Walking 10ft on Uneven Surface: 4 1 Step (curb) (QC): 4 4 Steps (QC): 4 12 Steps (QC): 4 Picking up an Object (QC): 4 Does the Pt use WC or Scooter?: Yes Wheel 50 feet with 2 turns (QC: 6 Type: Manual Wheel 150 feet: 6 Type: Manual PT Plan Treatment/Plan Treatment Plan: Continue Plan of Care Treatment Plan: Bed Mobility, Education, Functional Activity Janki, Functional Strength, Group Therapy, Gait, Safety, Therapeutic Exercise, Transfers Treatment Duration: Mar 08, 2021 Frequency: At least 5 of 7 days/Wk (IRF) Estimated Hrs Per Day: 1.5 hours per day Patient and/or Family Agrees t: Yes Time/GCodes Time In: 1330 Time Out: 1400 Total Billed Treatment Time: 30 Total Billed Treatment 1, FA, GT MOIZ [place] ENGAGEMENT DIRECTOR Jan 02, 2021 13:55
[2021-01-02 19:48] VITALS: BP 122/71
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
[2021-01-03 07:40] VITALS: BP 119/81
[2021-01-03] MEDS: SENNA W/DOCUSATE (SENOKOT S) TABLET PO SCH ×5 (09:42→20:39)
[2021-01-03] MEDS: DULoxetine 30 MG (CYMBALTA) CAP PO SCH ×2 (09:42→20:36)
[2021-01-03] MEDS: METHOCARBAMOL 750 MG (ROBAXIN) TAB PO SCH ×3 (09:42→20:36)
[2021-01-03] MEDS: MILK OF MAGNESIA 400 MG/5 ML 30 ML UDC PO SCH (09:42)
[2021-01-03] MEDS: ENOXAPARIN 40 MG/0.4 ML (LOVENOX) SYR SC SCH (09:42)
[2021-01-03] MEDS: DOCUSATE SODIUM 100 MG (COLACE) CAP PO SCH ×2 (09:42→20:36)
[2021-01-03] MEDS: AMPHETAMINE PO SCH (09:43)
[2021-01-03] MEDS: DEXTROAMPHETAMINE PO SCH (09:43)
[2021-01-03] MEDS: [UNRECOGNIZED DRUG - OTHER] PO SCH (09:43)
[2021-01-03] MEDS: GABAPENTIN 100 MG (NEURONTIN) CAP PO SCH ×3 (09:44→20:36)
[2021-01-03] MEDS: polyethylene glycoL POWDER 17 GM (MIRALAX) PACK PO SCH ×3 (09:45→20:38)
--- NOTE | 2021-01-03 10:30 | Physical Therapy Daily Note ---
PT Daily Note-Current Subjective Pt in bed upon arrival and agrees to tx. Pt has no c/o pain prior to tx, pain increases in mid/upper back when WB w/ UE during amb Mental Status Patient Orientation: Person, Place, Time, Situation Transfers SCALE: Activities may be completed with or without assistive devices. 7-Hgdwxlbrtr-lvfxlqn completes the activity by him/herself with no assistance from a helper. 5-Set-up or Clean-up Assistance-helper sets up or cleans up; patient completes activity. [place] assists only prior to or following the activity. 4-Supervision or Touching Assistance-helper provides verbal cues and/or touching/steadying and/or contact guard assistance as patient completes activity. Assistance may be provided throughout the activity or intermittently. 3-Partial/Moderate Assistance-helper does LESS THAN HALF the effort. [place] lifts, holds or supports trunk or limbs, but provides less than half the effort. 2-Substantial/Maximal Assistance-helper does MORE THAN HALF the effort. [place] lifts or holds trunk or limbs and provides more than half the effort. 2-Qjewbrytv-zbyyrl does ALL the effort. Patient does none of the effort to complete the activity. Or, the assistance of 2 or more helpers is required for the patient to complete the activity. If activity was not attempted, code reason: 7-Patient Refused. 9-Not Applicable-not attempted and the patient did not perform the activity before the current illness, exacerbation or injury. 10-Not Attempted due to Environmental Limitations-(lack of equipment, weather restraints, etc.). 88-Not Attempted due to Medical Conditions or Safety Concerns. Lying to Sitting/Side of Bed(Q: 4 Sit to Stand (QC): 4 Weight Bearing Right Lower Extremity: Right Non Weight Bearing Gait Training Does the Patient Walk?: Yes Distance: 125' Walk 10 feet (QC): 4 Walk 50 ft with 2 Turns(QC): 4 Gait Persons Needed: 1 Gait Assistive Device: FWW Pt has swing to gait w/ NWB on R LE. Overall pt has steady, safe gait Wheelchair Training Does the Pt Use a Wheelchair?: Yes Wheel 50 ft with 2 turns (QC): 5 Wheel 150 ft (QC): 5 Type of Wheelchair: Manual Exercises Seated Therapy Exercises: Ankle pumps (L LE), Long arc quads, Hip flexion, Hamstring Curls, Hip abd/add (w/ ball and RTB), Glut set Seated Reps: 15 Treatments 9:30-10:00: Pt supine to sit and sit to stand CGA, amb 125' to therapy gym w/ WC follow. Pt required standing rest breaks throughout. In gym, pt completes seated ex. Pt then performs dynamic standing balance activity while leaning on mat. Pt required to reach in all planes while unsupported from UE, CGA/SBA. Overall pt balance is good. OT enters tx at this time. 10:00-10:30 Co-treat: 2 skilled clinicians d/t pt poor mobility, low endurance, and safety. OT focused on UE strengthening, stretching, and functional mobility. PT focused on mobility, transfers, and LE strengthening/stretching. Pt propels WC on ARU to find and grab cones w/ use of radiosonde specialist. Pt propels WC a total of 300' while managing radiosonde specialist. Pt returns to therapy gym and completes B UE and L LE stretching. Pt stretches anterior tib., hams, and quads. PT exits tx at this time, pt remains w/ OT with all needs met. Assessment Current Status: Good Progress Pt increasing strength, mobility, endurance, and balance. Pt limited by pain and precautions PT Short Term Goals Short Term Goals Time Frame: Jan 18, 2021 Roll Left & Right: 4 Sit to lyin Lying to sitting on side of be: 4 Sit to stand: 4 Chair/jho-aw-xrumn transfer: 4 Toilet transfer: 4 Car transfer: 4 Walk 10 feet: 3 Walk 50 feet with two turns: 3 Walk 150 feet: 3 Walking 10ft on uneven surface: 3 1 step (curb): 3 4 steps: 3 Picking up objects: 3 Does pt use a wc or scooter: Yes Wheel 50ft w/2 turns: 6 Wheel 150 feet: 6 Type: Manual PT Intermediate Goals Intermediate Goals PT Voip Network Engineer Goals Time Frame: Feb 01, 2021 Roll Left & Right (QC): 5 Sit to Lying (QC): 5 Lying-Sitting on Side/Bed(QC): 5 Sit to Stand (QC): 5 Chair/Rbc-uw-Rfdvb Xfer(QC): 5 Toilet Transfer (QC): 5 Car Transfer (QC): 5 Does the Patient Walk: Yes Walk 10 feet (QC): 5 Walk 50ft with 2 Turns (QC): 5 Walk 150 ft (QC): 4 Walking 10ft on Uneven Surface: 4 1 Step (curb) (QC): 4 4 Steps (QC): 4 12 Steps (QC): 4 Picking up an Object (QC): 4 Does the Pt use WC or Scooter?: Yes Wheel 50 feet with 2 turns (QC: 6 Type: Manual Wheel 150 feet: 6 Type: Manual PT Plan Treatment/Plan Treatment Plan: Continue Plan of Care Treatment Plan: Bed Mobility, Education, Functional Activity Janki, Functional Strength, Group Therapy, Gait, Safety, Therapeutic Exercise, Transfers Treatment Duration: Mar 08, 2021 Frequency: At least 5 of 7 days/Wk (IRF) Estimated Hrs Per Day: 1.5 hours per day Patient and/or Family Agrees t: Yes Time/GCodes Time In: 930 Time Out: 1030 Total Billed Treatment Time: 60 Total Billed Treatment 1, GT, EX, FA x2 MOIZ [place] GAUNTLET PAIRER Jan 03, 2021 10:30
--- NOTE | 2021-01-03 10:57 | Occupational Ther Daily Note ---
OT Current Status-Daily Note Subjective Patient was alert and sitting in w/c in therapy room with PT. Patient reported minor pain in R shoulder. Pain not rated. Pt agrees to therapy. Mental Status/Objective Patient Orientation: Person, Place, Time, Situation Attachments: Other-See Comments (TLSO, c-collar, LE cast) ADL-Treatment Therapy Code Descriptions/Definitions Functional [place] Measure: 0=Not Assessed/NA 4=Minimal Assistance 1=Total Assistance 5=Supervision or Setup 2=Maximal Assistance 6=Modified [place] 3=Moderate Assistance 7=Complete IndependenceSCALE: Activities may be completed with or without assistive devices. 6-Ocdoqnmwpm-nltgheo completes the activity by him/herself with no assistance from a helper. 5-Set-up or Clean-up Assistance-helper sets up or cleans up; patient completes activity. [place] assists only prior to or following the activity. 4-Supervision or Touching Assistance-helper provides verbal cues and/or touching/steadying and/or contact guard assistance as patient completes activity. Assistance may be provided throughout the activity or intermittently. 3-Partial/Moderate Assistance-helper does LESS THAN HALF the effort. [place] lifts, holds or supports trunk or limbs, but provides less than half the effort. 2-Substantial/Maximal Assistance-helper does MORE THAN HALF the effort. [place] lifts or holds trunk or limbs and provides more than half the effort. 0-Wrhbhunwt-hbbvwl does ALL the effort. Patient does none of the effort to complete the activity. Or, the assistance of 2 or more helpers is required for the patient to complete the activity. If activity was not attempted, code reason: 7-Patient Refused. 9-Not Applicable-not attempted and the patient did not perform the activity before the current illness, exacerbation or injury. 10-Not Attempted due to Environmental Limitations-(lack of equipment, weather restraints, etc.). 88-Not Attempted due to Medical Conditions or Safety Concerns. Other Treatment PT/OT cotreat with pt ([phone]). 2 clinicians required for skilled treatment to decrease fall risk and increase mobility and activity tolerance for ADLs. PT addressed standing balance and mobility, OT addressed functional mobility, fine motor skills and coordination. Pt sit-> stand from w/c to FWW. See PT notes for transfer and mobility. Pt stood at edge of therapy mat table stabilized self by leaning on stable surface.and engaged in SIVA cards demonstrating dynamic joey ding, hand/eye coordination, and fine motor skills for ADL performances. Pt propelled w/c around halls to locate cones, then used general maintenance technician to grasp cones. Pt engaged in therapeutic exercises in therapy room while seated to increase UE strength and endurance for participation in ADLs. Pt engaged in 10 reps x 2 sets of B bicep curls against gravity, 10 reps of B bicep curls using 3 lb hand weight, 10 reps x 2 sets L horizontal shoulder abduction against gravity (pt c/o pain), 5 reps x 2 sets R horizontal shoulder abduction using 3 lb hand weight. Pt engaged in B shoulder flex/ext using mica 15 reps x 2, no pain during this exercise. Pt demonstrated cone stacking ability crossing midline and B shoulder elevation with internal rotation. Pt participated in fine motor skill activity by using pinch grasp to match the colored clothes pin and attach them to the game board. After session, patient supine with call light/ phone within reach. All needs met in room. OT Short Term Goals Short Term Goals Time Frame: Jan 04, 2021 Eatin Oral hygiene: 4 Toileting hygiene: 3 Shower/bathe self: 3 Upper body dressin Lower body dressin Putting on/taking off footwear: 5 OT Jail Goals Jail Goals Time Frame: Jan 13, 2021 Eating (QC): 6 Oral Hygiene (QC): 6 Toileting Hygiene (QC): 6 Shower/Bathe Self (QC): 5 Upper Body Dressing (QC): 5 Lower Body Dressing (QC): 5 On/Off Footwear (QC): 6 1=Demonstrate adherence to instructed precautions during ADL tasks. 2=Patient will verbalize/demonstrate understanding of assistive devices/modifications for ADL. 3=Patient will improve strength/tolerance for activity to enable patient to per form ADL's. OT Education/Plan Problem List/Assessment Assessment: Decreased Activ Tolerance, Decreased UE Strength, Impaired Coordination, Impaired Funct Balance, Restricted Funct UE ROM Discharge Recommendations Plan/Recommendations: Continue POC Treatment Plan/Plan of Care Patient would benefit from OT for education, treatment and training to promote independence in ADL's, mobility, safety and/or upper extremity function for ADL's. Plan of Care: ADL Retraining, Functional Mobility, Group Exercise/Act as Ind, Orthotic Fitting/Training, UE Funct Exercise/Act Treatment Duration: Jan 13, 2021 Frequency: At least 5 of 7 days/Wk (IRF) Estimated Hrs Per Day: 1.5 hours per day Agreement: Yes Rehab Potential: Fair Time/GCodes Start Time: 10:00 Stop Time: 11:00 Total Time Billed (hr/min): 60 Billed Treatment Time 1 Visit- FA 1 (15min) EX 3 (45 min) Cotreat with PT (30 min) [id number]. Individual [id number] PITA MENESES Jan 03, 2021 10:57
--- NOTE | 2021-01-03 13:31 | Physical Therapy Daily Note ---
PT Daily Note-Current Subjective Pt in bed upon arrival and agrees to tx. Pt states pain is better than yesterday and am. Mental Status Patient Orientation: Person, Place, Time, Situation Transfers SCALE: Activities may be completed with or without assistive devices. 2-Uycqfcvwwg-anhnzxj completes the activity by him/herself with no assistance from a helper. 5-Set-up or Clean-up Assistance-helper sets up or cleans up; patient completes activity. [place] assists only prior to or following the activity. 4-Supervision or Touching Assistance-helper provides verbal cues and/or touching/steadying and/or contact guard assistance as patient completes activity. Assistance may be provided throughout the activity or intermittently. 3-Partial/Moderate Assistance-helper does LESS THAN HALF the effort. [place] lifts, holds or supports trunk or limbs, but provides less than half the effort. 2-Substantial/Maximal Assistance-helper does MORE THAN HALF the effort. [place] lifts or holds trunk or limbs and provides more than half the effort. 9-Onpvzljxg-pyfhef does ALL the effort. Patient does none of the effort to complete the activity. Or, the assistance of 2 or more helpers is required for the patient to complete the activity. If activity was not attempted, code reason: 7-Patient Refused. 9-Not Applicable-not attempted and the patient did not perform the activity before the current illness, exacerbation or injury. 10-Not Attempted due to Environmental Limitations-(lack of equipment, weather restraints, etc.). 88-Not Attempted due to Medical Conditions or Safety Concerns. Roll Left & Right (QC): 5 Sit to Lying (QC): 5 Lying to Sitting/Side of Bed(Q: 5 Sit to Stand (QC): 4 Weight Bearing Right Lower Extremity: Right Non Weight Bearing Gait Training Does the Patient Walk?: Yes Distance: 100' x2 Walk 10 feet (QC): 4 Walk 50 ft with 2 Turns(QC): 4 Gait Assistive Device: FWW Treatments Pt in bed supine to sit EOB. Pt sits EOB to don back brace SBA. Pt sit to stand CGA and amb 100' x2 on ARU w/ FWW CGA. During amb pt states pain is better in back. Once in room, pt sits EOB to doff brace SBA. Pt sit to supine and demonstrates rolling in bed. Pt completes while following precautions. Pt able to scoot self up into bed SBA. Pt remains in bed with all needs met, call light in hand. Assessment Current Status: Good Progress Pt limited by pain. Increasing endurance and mobility PT Short Term Goals Short Term Goals Time Frame: Jan 18, 2021 Roll Left & Right: 4 Sit to lyin Lying to sitting on side of be: 4 Sit to stand: 4 Chair/ttb-zz-fdpqh transfer: 4 Toilet transfer: 4 Car transfer: 4 Walk 10 feet: 3 Walk 50 feet with two turns: 3 Walk 150 feet: 3 Walking 10ft on uneven surface: 3 1 step (curb): 3 4 steps: 3 Picking up objects: 3 Does pt use a wc or scooter: Yes Wheel 50ft w/2 turns: 6 Wheel 150 feet: 6 Type: Manual PT Computer Technical Support Specialist Goals Computer Technical Support Specialist Goals PT Fdc Goals Time Frame: Feb 01, 2021 Roll Left & Right (QC): 5 Sit to Lying (QC): 5 Lying-Sitting on Side/Bed(QC): 5 Sit to Stand (QC): 5 Chair/Isj-sa-Nvsrw Xfer(QC): 5 Toilet Transfer (QC): 5 Car Transfer (QC): 5 Does the Patient Walk: Yes Walk 10 feet (QC): 5 Walk 50ft with 2 Turns (QC): 5 Walk 150 ft (QC): 4 Walking 10ft on Uneven Surface: 4 1 Step (curb) (QC): 4 4 Steps (QC): 4 12 Steps (QC): 4 Picking up an Object (QC): 4 Does the Pt use WC or Scooter?: Yes Wheel 50 feet with 2 turns (QC: 6 Type: Manual Wheel 150 feet: 6 Type: Manual PT Plan Treatment/Plan Treatment Plan: Continue Plan of Care Treatment Plan: Bed Mobility, Education, Functional Activity Janki, Functional Strength, Group Therapy, Gait, Safety, Therapeutic Exercise, Transfers Treatment Duration: Mar 08, 2021 Frequency: At least 5 of 7 days/Wk (IRF) Estimated Hrs Per Day: 1.5 hours per day Patient and/or Family Agrees t: Yes Time/GCodes Time In: 1300 Time Out: 1330 Total Billed Treatment Time: 30 Total Billed Treatment 1, GT, MOIZ HERNANDEZ DIRECTOR MEDICAL ECONOMICS Jan 03, 2021 13:30
--- NOTE | 2021-01-03 14:06 | Occupational Ther Daily Note ---
OT Current Status-Daily Note Subjective Pt laying supine in bed. No c/o pain. Pt agrees to therapy Mental Status/Objective Patient Orientation: Person, Place, Time, Situation Attachments: Other-See Comments (TLSO, c-collar, LE cast) ADL-Treatment Therapy Code Descriptions/Definitions Functional [place] Measure: 0=Not Assessed/NA 4=Minimal Assistance 1=Total Assistance 5=Supervision or Setup 2=Maximal Assistance 6=Modified [place] 3=Moderate Assistance 7=Complete IndependenceSCALE: Activities may be completed with or without assistive devices. 5-Hxszaopckb-sgfdbes completes the activity by him/herself with no assistance from a helper. 5-Set-up or Clean-up Assistance-helper sets up or cleans up; patient completes activity. [place] assists only prior to or following the activity. 4-Supervision or Touching Assistance-helper provides verbal cues and/or touching/steadying and/or contact guard assistance as patient completes acti vity. Assistance may be provided throughout the activity or intermittently. 3-Partial/Moderate Assistance-helper does LESS THAN HALF the effort. [place] lifts, holds or supports trunk or limbs, but provides less than half the effort. 2-Substantial/Maximal Assistance-helper does MORE THAN HALF the effort. [place] lifts or holds trunk or limbs and provides more than half the effort. 9-Sswiilzej-agrtij does ALL the effort. Patient does none of the effort to complete the activity. Or, the assistance of 2 or more helpers is required for the patient to complete the activity. If activity was not attempted, code reason: 7-Patient Refused. 9-Not Applicable-not attempted and the patient did not perform the activity before the current illness, exacerbation or injury. 10-Not Attempted due to Environmental Limitations-(lack of equipment, weather restraints, etc.). 88-Not Attempted due to Medical Conditions or Safety Concerns. Other Treatment Pt. supine to sit EOB SBA. Pt donned brace independently. Pt educated on use of seam press operator. Pt used seam press operator to grasp items from floor and place on table, crossing mid line and shifting weight while seated EOB. Pt engaged in therapeutic exercise of tricep extensions using yellow theraband, 15 reps x 2 reps. Pt demonstrated sit to stand from EOB to FWW 6 times CGA requiring VC on hand placement to complete safely. Patient sit to supine independently, c/o pain. Pt demonstrated use of seam press operator to pull blankets over feet. After session, pt supine with call light/phone within reach. All needs met in room. Education OT Patient Education: Use of adapted equipment Teaching Recipient: Patient Teaching Methods: Demonstration, Discussion Response to Teaching: Verbalize Understanding, Return Demonstration OT Short Term Goals Short Term Goals Time Frame: Jan 04, 2021 Eatin Oral hygiene: 4 Toileting hygiene: 3 Shower/bathe self: 3 Upper body dressin Lower body dressin Putting on/taking off footwear: 5 OT Butter Printer Goals Butter Printer Goals Time Frame: Jan 13, 2021 Eating (QC): 6 Oral Hygiene (QC): 6 Toileting Hygiene (QC): 6 Shower/Bathe Self (QC): 5 Upper Body Dressing (QC): 5 Lower Body Dressing (QC): 5 On/Off Footwear (QC): 6 1=Demonstrate adherence to instructed precautions during ADL tasks. 2=Patient will verbalize/demonstrate understanding of assistive devices/modifications for ADL. 3=Patient will improve strength/tolerance for activity to enable patient to perform ADL's. OT Education/Plan Problem List/Assessment Assessment: Decreased UE Strength, Impaired Self-Care Skills Discharge Recommendations Plan/Recommendations: Continue POC Treatment Plan/Plan of Care Patient would benefit from OT for education, treatment and training to promote independence in ADL's, mobility, safety and/or upper extremity function for ADL's. Plan of Care: ADL Retraining, Functional Mobility, Group Exercise/Act as Ind, Orthotic Fitting/Training, UE Funct Exercise/Act Treatment Duration: Jan 13, 2021 Frequency: At least 5 of 7 days/Wk (IRF) Estimated Hrs Per Day: 1.5 hours per day Agreement: Yes Rehab Potential: Fair Time/GCodes Start Time: 13:30 Stop Time: 14:00 Total Time Billed (hr/min): 30 Billed Treatment Time 1 Visit- FA 2 (30 min) PITA MENESES Jan 03, 2021 14:06
[2021-01-03 19:42] VITALS: BP 122/75
[2021-01-03] MEDS: MELATONIN 3 MG TABLET PO PRN (20:36)
[2021-01-03] MEDS: ACETAMINOPHEN 325 MG TABLET PO PRN (20:37)
[2021-01-04 07:30] VITALS: BP 126/69
[2021-01-04] MEDS: DULoxetine 30 MG (CYMBALTA) CAP PO SCH ×2 (07:58→21:31)
[2021-01-04] MEDS: ENOXAPARIN 40 MG/0.4 ML (LOVENOX) SYR SC SCH (07:58)
[2021-01-04] MEDS: DOCUSATE SODIUM 100 MG (COLACE) CAP PO SCH ×2 (07:58→21:31)
[2021-01-04] MEDS: SENNA W/DOCUSATE (SENOKOT S) TABLET PO SCH ×4 (07:58→21:32)
[2021-01-04] MEDS: METHOCARBAMOL 750 MG (ROBAXIN) TAB PO SCH ×3 (07:58→21:31)
[2021-01-04] MEDS: GABAPENTIN 100 MG (NEURONTIN) CAP PO SCH ×3 (08:02→21:32)
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
[2021-01-04] MEDS: polyethylene glycoL POWDER 17 GM (MIRALAX) PACK PO SCH ×2 (09:57→21:38)
[2021-01-04] MEDS: MILK OF MAGNESIA 400 MG/5 ML 30 ML UDC PO SCH (09:57)
--- NOTE | 2021-01-04 10:28 | Physical Therapy Daily Note ---
PT Daily Note-Current Subjective Pt in bed upon arrival and agrees to tx. Pt has no c/o pain and states he is feeling better today Mental Status Patient Orientation: Person, Place, Time, Situation Transfers SCALE: Activities may be completed with or without assistive devices. 4-Nqyiwzwpxl-boychar completes the activity by him/herself with no assistance from a helper. 5-Set-up or Clean-up Assistance-helper sets up or cleans up; patient completes activity. [place] assists only prior to or following the activity. 4-Supervision or Touching Assistance-helper provides verbal cues and/or touching/steadying and/or contact guard assistance as patient completes ac tivity. Assistance may be provided throughout the activity or intermittently. 3-Partial/Moderate Assistance-helper does LESS THAN HALF the effort. [place] lifts, holds or supports trunk or limbs, but provides less than half the effort. 2-Substantial/Maximal Assistance-helper does MORE THAN HALF the effort. [place] lifts or holds trunk or limbs and provides more than half the effort. 0-Yrfrisivu-leybzs does ALL the effort. Patient does none of the effort to complete the activity. Or, the assistance of 2 or more helpers is required for the patient to complete the activity. If activity was not attempted, code reason: 7-Patient Refused. 9-Not Applicable-not attempted and the patient did not perform the activity before the current illness, exacerbation or injury. 10-Not Attempted due to Environmental Limitations-(lack of equipment, weather restraints, etc.). 88-Not Attempted due to Medical Conditions or Safety Concerns. Roll Left & Right (QC): 5 Sit to Lying (QC): 5 Lying to Sitting/Side of Bed(Q: 5 Sit to Stand (QC): 5 Weight Bearing Right Lower Extremity: Right Non Weight Bearing Gait Training Does the Patient Walk?: Yes Distance: 200' x2, 100' Walk 10 feet (QC): 4 Walk 50 ft with 2 Turns(QC): 4 Walk 150 ft (QC): 4 Gait Persons Needed: 1 Gait Assistive Device: FWW Pt able to amb 200' x2 today CGA with no c/o pain. Pt has slow, swing to gait pattern w/ FWW and NWB on R LE. Treatments 930-10: Pt completes bed mobility and sits EOB to don back brace SBA. Pt sit to stand and amb 200' in ARU to therapy gym. Pt completes dynamic standing balance activity w/ B UE, using one while supporting w/ other on FWW. Pt then amb another 200' and returns to gym. OT enters tx at this time. : Co-treat with 2 skilled clinicians d/t pt poor mobility, fatigue, and safety. OT focused on dressing, showering, and UE positioning. PT focused on mo bility, transfers, and LE positioning. Pt amb 100' to bedroom and sits EOB. Pt doffs shirt as OT covers bandages for shower. Pt amb to shower chair and doffs TLO SBA. Pt exits tx at this time. Pt remains in shower w/ OT with all needs met. Assessment Current Status: Good Progress Pt increasing amb distance and is experiencing less pain. PT Short Term Goals Short Term Goals Time Frame: Jan 18, 2021 Roll Left & Right: 4 Sit to lyin Lying to sitting on side of be: 4 Sit to stand: 4 Chair/zns-np-dqyuj transfer: 4 Toilet transfer: 4 Car transfer: 4 Walk 10 feet: 3 Walk 50 feet with two turns: 3 Walk 150 feet: 3 Walking 10ft on uneven surface: 3 1 step (curb): 3 4 steps: 3 Picking up objects: 3 Does pt use a wc or scooter: Yes Wheel 50ft w/2 turns: 6 Wheel 150 feet: 6 Type: Manual PT Supervisor Cell Maintenance Goals Supervisor Cell Maintenance Goals PT Snf Goals Time Frame: Feb 01, 2021 Roll Left & Right (QC): 5 Sit to Lying (QC): 5 Lying-Sitting on Side/Bed(QC): 5 Sit to Stand (QC): 5 Chair/Nud-jl-Fwohf Xfer(QC): 5 Toilet Transfer (QC): 5 Car Transfer (QC): 5 Does the Patient Walk: Yes Walk 10 feet (QC): 5 Walk 50ft with 2 Turns (QC): 5 Walk 150 ft (QC): 4 Walking 10ft on Uneven Surface: 4 1 Step (curb) (QC): 4 4 Steps (QC): 4 12 Steps (QC): 4 Picking up an Object (QC): 4 Does the Pt use WC or Scooter?: Yes Wheel 50 feet with 2 turns (QC: 6 Type: Manual Wheel 150 feet: 6 Type: Manual PT Plan Treatment/Plan Treatment Plan: Continue Plan of Care Treatment Plan: Bed Mobility, Education, Functional Activity Janki, Functional Strength, Group Therapy, Gait, Safety, Therapeutic Exercise, Transfers Treatment Duration: Mar 08, 2021 Frequency: At least 5 of 7 days/Wk (IRF) Estimated Hrs Per Day: 1.5 hours per day Patient and/or Family Agrees t: Yes Time/GCodes Time In: 930 Time Out: 1030 Total Billed Treatment Time: 60 Total Billed Treatment 1, GT x2, NM, FA MOIZ [place] SPOUT POSITIONER Jan 04, 2021 10:28
--- NOTE | 2021-01-04 11:15 | Occupational Ther Daily Note ---
OT Current Status-Daily Note Subjective Pt sitting in therapy room with PT. Pt agrees to therapy. No c/o pain. Mental Status/Objective Patient Orientation: Person, Place, Time, Situation Attachments: Other-See Comments (TLSO, c-collar, LE cast) ADL-Treatment PT/OT cotreat with pt ([id number]). 2 clinicians required for skilled treatment to decrease fall risk, increase mobility and activity tolerance. PT focused on mobility and safe transfers, OT focused on ADLs and functional mobility. Patient agrees to shower. PT ambulated pt using FWW with CGA from therapy room to sit EOB. All incisions and cast were covered before shower. See PT notes on mobility and transfer to [facility] in shower. After shower, pt assisted on changing c-collar. Pt transferred from [facility] to w/c using shower grab bars for safe transfer SBA. Pt transferred to EOB from w/c SBA. After session, patient was supine in bed with call light/phone within reach. All needs in room were met. Therapy Code Descriptions/Definitions Functional [place] Measure: 0=Not Assessed/NA 4=Minimal Assistance 1=Total Assistance 5=Supervision or Setup 2=Maximal Assistance 6=Modified [place] 3=Moderate Assistance 7=Complete IndependenceSCALE: Activities may be completed with or without assistive devices. 1-Fvicebmcyl-xxrycrn completes the activity by him/herself with no assistance from a helper. 5-Set-up or Clean-up Assistance-helper sets up or cleans up; patient completes activity. [place] assists only prior to or following the activity. 4-Supervision or Touching Assistance-helper provides verbal cues and/or touching/steadying and/or contact guard assistance as patient completes activity. Assistance may be provided throughout the activity or intermittently. 3-Partial/Moderate Assistance-helper does LESS THAN HALF the effort. [place] lifts, holds or supports trunk or limbs, but provides less than half the effort. 2-Substantial/Maximal Assistance-helper does MORE THAN HALF the effort. [place] lifts or holds trunk or limbs and provides more than half the effort. 2-Wgtqblamc-hyutqc does ALL the effort. Patient does none of the effort to complete the activity. Or, the assistance of 2 or more helpers is required for the patient to complete the activity. If activity was not attempted, code reason: 7-Patient Refused. 9-Not Applicable-not attempted and the patient did not perform the activity before the current illness, exacerbation or injury. 10-Not Attempted due to Environmental Limitations-(lack of equipment, weather restraints, etc.). 88-Not Attempted due to Medical Conditions or Safety Concerns. Oral Hygiene (QC): 6 Bathing Location: L Arm, R Arm, L Upper Leg, R Upper Leg, L Lower Leg (i ncluding foot), R Lower Leg (including foot), Chest, Abdomen, Buttocks, Perineal Area Shower/Bathe Self (QC): 5 (Set up. Sitting on BSC in shower, pt used LH sponge, grabbar and hand held shower to complete own bathing/rinsing/drying) Upper Body Dressing (QC): 3 (Set up to don/doff upper clothing, assist with c- collar. Set up to don TLSO, independent to doff.) Lower Body Dressing (QC): 5 (After set up, pt is able to complete lower body dressing by self.) On/Off Footwear: 5 (After set up, pt able to don/doff socks in sitting by bring foot up in a figure 4 technique to adhere to back precautions.) Toileting Hygiene (QC): 6 Toilet Transfer (QC): 6 OT Short Term Goals Short Term Goals Time Frame: Jan 04, 2021 Eatin Oral hygiene: 4 Toileting hygiene: 3 Shower/bathe self: 3 Upper body dressin Lower body dressin Putting on/taking off footwear: 5 OT Alf Goals Alf Goals Time Frame: Jan 13, 2021 Eating (QC): 6 Oral Hygiene (QC): 6 Toileting Hygiene (QC): 6 Shower/Bathe Self (QC): 5 Upper Body Dressing (QC): 5 Lower Body Dressing (QC): 5 On/Off Footwear (QC): 6 1=Demonstrate adherence to instructed precautions during ADL tasks. 2=Patient will verbalize/demonstrate understanding of assistive devices/modifications for ADL. 3=Patient will improve strength/tolerance for activity to enable patient to perform ADL's. OT Education/Plan Problem List/Assessment Assessment: Impaired Self-Care Skills Discharge Recommendations Plan/Recommendations: Continue POC Treatment Plan/Plan of Care Patient would benefit from OT for education, treatment and training to promote independence in ADL's, mobility, safety and/or upper extremity function for ADL's. Plan of Care: ADL Retraining, Functional Mobility, Group Exercise/Act as Ind, Orthotic Fitting/Training, UE Funct Exercise/Act Treatment Duration: Jan 13, 2021 Frequency: At least 5 of 7 days/Wk (IRF) Estimated Hrs Per Day: 1.5 hours per day Agreement: Yes Rehab Potential: Fair Time/GCodes Start Time: 10:00 Stop Time: 11:00 Total Time Billed (hr/min): 60 Billed Treatment Time 1 Visit-ADL 4 (60 min) Cotreat with PT ([id number]) Individual ([id number]) PITA MENESES Jan 04, 2021 11:15
[2021-01-04] MEDS: AMPHETAMINE PO SCH (13:10)
[2021-01-04] MEDS: [UNRECOGNIZED DRUG - OTHER] PO SCH (13:10)
[2021-01-04] MEDS: DEXTROAMPHETAMINE PO SCH (13:10)
--- NOTE | 2021-01-04 13:25 | Physical Therapy Daily Note ---
PT Daily Note-Current Subjective Pt in bed upon arrival and agrees to tx. Pt states pain in mid back, but doesn't rate out of 10, says it's better than yesterday Pain Location: Medial Location Body Site: Back Mental Status Patient Orientation: Person, Place, Time, Situation Transfers SCALE: Activities may be completed with or without assistive devices. 5-Draagaabgv-fqohtee completes the activity by him/herself with no assistance from a helper. 5-Set-up or Clean-up Assistance-helper sets up or cleans up; patient completes activity. [place] assists only prior to or following the activity. 4-Supervision or Touching Assistance-helper provides verbal cues and/or touching/steadying and/or contact guard assistance as patient completes activity. Assistance may be provided throughout the activity or intermittently. 3-Partial/Moderate Assistance-helper does LESS THAN HALF the effort. [place] lifts, holds or supports trunk or limbs, but provides less than half the effort. 2-Substantial/Maximal Assistance-helper does MORE THAN HALF the effort. [place] lifts or holds trunk or limbs and provides more than half the effort. 1-Evfohsjvs-gqsolt does ALL the effort. Patient does none of the effort to complete the activity. Or, the assistance of 2 or more helpers is required for the patient to complete the activity. If activity was not attempted, code reason: 7-Patient Refused. 9-Not Applicable-not attempted and the patient did not perform the activity before the current illness, exacerbation or injury. 10-Not Attempted due to Environmental Limitations-(lack of equipment, weather restraints, etc.). 88-Not Attempted due to Medical Conditions or Safety Concerns. Roll Left & Right (QC): 5 Sit to Lying (QC): 5 Lying to Sitting/Side of Bed(Q: 5 Sit to Stand (QC): 5 Weight Bearing Right Lower Extremity: Right Non Weight Bearing Gait Training Does the Patient Walk?: Yes Distance: 250' Walk 10 feet (QC): 5 Walk 50 ft with 2 Turns(QC): 5 Walk 150 ft (QC): 5 Gait Assistive Device: FWW Swing to gait pattern w/ FWW, no deviations noted at this time Treatments Pt in bed and completes bed mobility and sits EOB. Pt able to don TLO SBA. Pt sit to stand SBA and amb 250' on ARU. Pt has slow, but steady and safe gait. Pt returns to recliner in room and was left with all needs met, call light in hand. Assessment Current Status: Good Progress Pt is SBA for all mobility at this time. Pt unable to progress much more due to precautions PT Short Term Goals Short Term Goals Time Frame: Jan 18, 2021 Roll Left & Right: 4 Sit to lyin Lying to sitting on side of be: 4 Sit to stand: 4 Chair/usj-rv-nljxz transfer: 4 Toilet transfer: 4 Car transfer: 4 Walk 10 feet: 3 Walk 50 feet with two turns: 3 Walk 150 feet: 3 Walking 10ft on uneven surface: 3 1 step (curb): 3 4 steps: 3 Picking up objects: 3 Does pt use a wc or scooter: Yes Wheel 50ft w/2 turns: 6 Wheel 150 feet: 6 Type: Manual PT [place] Operator Goals Assisted Goals PT Assisted Goals Time Frame: Feb 01, 2021 Roll Left & Right (QC): 5 Sit to Lying (QC): 5 Lying-Sitting on Side/Bed(QC): 5 Sit to Stand (QC): 5 Chair/Pqf-fa-Hvfic Xfer(QC): 5 Toilet Transfer (QC): 5 Car Transfer (QC): 5 Does the Patient Walk: Yes Walk 10 feet (QC): 5 Walk 50ft with 2 Turns (QC): 5 Walk 150 ft (QC): 4 Walking 10ft on Uneven Surface: 4 1 Step (curb) (QC): 4 4 Steps (QC): 4 12 Steps (QC): 4 Picking up an Object (QC): 4 Does the Pt use WC or Scooter?: Yes Wheel 50 feet with 2 turns (QC: 6 Type: Manual Wheel 150 feet: 6 Type: Manual PT Plan Treatment/Plan Treatment Plan: Continue Plan of Care Treatment Plan: Bed Mobility, Education, Functional Activity Janki, Functional Strength, Group Therapy, Gait, Safety, Therapeutic Exercise, Transfers Treatment Duration: Mar 08, 2021 Frequency: At least 5 of 7 days/Wk (IRF) Estimated Hrs Per Day: 1.5 hours per day Patient and/or Family Agrees t: Yes Time/GCodes Time In: 1300 Time Out: 1330 Total Billed Treatment Time: 30 Total Billed Treatment 1, GT x2 MOIZ [place] DESIGN SALES CONSULTANT Jan 04, 2021 13:25
--- NOTE | 2021-01-04 14:13 | Occupational Ther Daily Note ---
OT Current Status-Daily Note Subjective Pt sitting in chair. No c/o pain. Pt agrees to therapy. Mental Status/Objective Patient Orientation: Person, Place, Time, Situation Attachments: Other-See Comments (TLSO, c-collar, LE cast) ADL-Treatment Therapy Code Descriptions/Definitions Functional Rich Measure: 0=Not Assessed/NA 4=Minimal Assistance 1=Total Assistance 5=Supervision or Setup 2=Maximal Assistance 6=Modified Rich 3=Moderate Assistance 7=Complete IndependenceSCALE: Activities may be completed with or without assistive devices. 9-Ecrgtfojdd-yviejni completes the activity by him/herself with no assistance from a helper. 5-Set-up or Clean-up Assistance-helper sets up or cleans up; patient completes activity. [place] assists only prior to or following the activity. 4-Supervision or Touching Assistance-helper provides verbal cues and/or touching/steadying and/or contact guard assistance as patient completes activit y. Assistance may be provided throughout the activity or intermittently. 3-Partial/Moderate Assistance-helper does LESS THAN HALF the effort. [place] lifts, holds or supports trunk or limbs, but provides less than half the effort. 2-Substantial/Maximal Assistance-helper does MORE THAN HALF the effort. [place] lifts or holds trunk or limbs and provides more than half the effort. 4-Ibygwozsd-mnsyhv does ALL the effort. Patient does none of the effort to complete the activity. Or, the assistance of 2 or more helpers is required for the patient to complete the activity. If activity was not attempted, code reason: 7-Patient Refused. 9-Not Applicable-not attempted and the patient did not perform the activity before the current illness, exacerbation or injury. 10-Not Attempted due to Environmental Limitations-(lack of equipment, weather restraints, etc.). 88-Not Attempted due to Medical Conditions or Safety Concerns. Pt stated living in a 2-story house. Pt is moved to the bottom floor. There are 2 steps to entryway of house. Living room, dining room, and kitchen are close together. Kitchen has hardwood myesha. There is a short bhatt by the base of the stairs that leads to the bathroom. Bathroom has vinyl myesha with non-skid rug and bathtub. Pt. stated that S.O. is getting a shower seat for tub. The sink is right next to the toilet. Pt stated that the bedroom is at R of living room and is carpeted. Pt stated that the bed is at a good height. Other Treatment Pt participated in therapeutic exercise while seated in chair to strengthen B UE and increase activity tolerance for ADL tasks. Pt engaged in resistive exercises while seated in chair using light resistance theraband, B bicep curls 15 reps x 2 sets, B horizontal shoulder abductions 15 reps x 2, B internal/external rotation 10 reps x 2 sets. Pt participated in pipe tree task connecting all pipes onto platform while seated in chair demonstrating fine motor skill, coordination, and bilateral/midline reaching necessary for completion of ADL tasks. Pt transferred from chair to EOB using FWW for stability. After session, pt supine in bed with call light/phone within reach. All needs were met in room. OT Short Term Goals Short Term Goals Time Frame: Jan 04, 2021 Eatin Oral hygiene: 4 Toileting hygiene: 3 Shower/bathe self: 3 Upper body dressin Lower body dressin Putting on/taking off footwear: 5 OT Ore Feeder Goals Care Home Goals Time Frame: Jan 13, 2021 Eating (QC): 6 Oral Hygiene (QC): 6 Toileting Hygiene (QC): 6 Shower/Bathe Self (QC): 5 Upper Body Dressing (QC): 5 Lower Body Dressing (QC): 5 On/Off Footwear (QC): 6 1=Demonstrate adherence to instructed precautions during ADL tasks. 2=Patient will verbalize/demonstrate understanding of assistive device s/modifications for ADL. 3=Patient will improve strength/tolerance for activity to enable patient to perform ADL's. OT Education/Plan Problem List/Assessment Assessment: Decreased UE Strength, Impaired Coordination Discharge Recommendations Plan/Recommendations: Continue POC Treatment Plan/Plan of Care Patient would benefit from OT for education, treatment and training to promote independence in ADL's, mobility, safety and/or upper extremity function for ADL's. Plan of Care: ADL Retraining, Functional Mobility, Group Exercise/Act as Ind, Orthotic Fitting/Training, UE Funct Exercise/Act Treatment Duration: Jan 13, 2021 Frequency: At least 5 of 7 days/Wk (IRF) Estimated Hrs Per Day: 1.5 hours per day Agreement: Yes Rehab Potential: Fair Time/GCodes Start Time: 13:30 Stop Time: 14:00 Total Time Billed (hr/min): 30 Billed Treatment Time 1 Visit- FA (15 min) EX (15 min) PITA MENESES Jan 04, 2021 14:13
[2021-01-04] MEDS: ACETAMINOPHEN 325 MG TABLET PO PRN ×2 (15:14→21:31)
[2021-01-04 19:46] VITALS: BP 124/70
[2021-01-04] MEDS: MELATONIN 3 MG TABLET PO PRN (21:32)
--- NOTE | 2021-01-05 07:41 | Behavioral Health Consult ---
Consult- Consult Date Seen by Provider: Jan 04, 2021 Time Seen by Provider: 11:05 CPT Code: 65553 Psychotherapy (Session length 17-37min.) Start Time: 1105 End Time: 1130 Duration: 25 minutes Subjective: Kahlil is seen today for individual psychotherapy to address concerns and symptoms associated with F43.23 Adjustment Disorder with Mixed Anxiety and Depression and F10.20 Alcohol Use Disorder. The primary clinical themes and problems discussed during the appointment were his mood. He reported he is doing much better this week. He stated he has not been panicking and feels happier. He talked about wanting to get home. He stated he has not thought about drinking alcohol, but still plans to go to inpatient treatment when he can. Therapist encouraged him to identify triggers for his depression and alcohol use. Overall symptoms observed or reported requiring current level of care included alcohol abuse/dependence, anergia, anxiety, attention/concentration deficits, depressed mood, medical problems, sleep disturbance (onset delay/easily awakened), and worry. Level of functioning was average. Objective: Kahlil was laying in his hospital bed when therapist arrived and was alone. Kahlil was oriented to person, place, time, and situation. Overall appearance was appropriately dressed and groomed. Arcristinos approach to the session was cooperative. Mood was generally euthymic with affect appropriate to expressed concerns and presenting problem. Eye contact was fair. Tone of voice was normal and controlled. Speech was of normal rate and flow. Thought processes were appropriate and focused during the appointment. Thought content was marked by no abnormal findings. Psychomotor functioning was within normal limits. Insight was average. Concentration was good. Kelly style of interacting during the appointment was appropriate and motivated. Assessment: Interventions utilized during [facility] appointment included active listening and cognitive-behavioral therapy. The current long-term goal of treatment is unchanged from the initial evaluation and plan of treatment. Concerning progress to this point in treatment, Kahlil appears to be making average progress towards treatment goals from observations during [facility] appointment. Kahlil appeared to have some improvement in emotional functioning since the last appointment. Overall, a/an average level of motivation was displayed towards treatment goals. Arcristinos capacity to make changes/decisions is good. Overall, prognosis is good. Diagnostic Impressions (ICD-10): F43.23 Adjustment Disorder with Mixed Anxiety and Depression F10.20 Alcohol Use Disorder Plan: The appointment ended on time. The current treatment/therapy plan will continue for the present time without significant modification. Kahlil is recommended to reschedule within one week for follow-up. ANTONI PLAZA Jan 05, 2021 07:41
[2021-01-05 08:00] VITALS: BP 120/70
[2021-01-05] MEDS ORDERED: ACETAMINOPHEN 325 MG TABLET PO PRN (08:00)
[2021-01-05] MEDS: DULoxetine 30 MG (CYMBALTA) CAP PO SCH ×2 (08:22→21:25)
[2021-01-05] MEDS: METHOCARBAMOL 750 MG (ROBAXIN) TAB PO SCH ×3 (08:22→21:25)
[2021-01-05] MEDS: ENOXAPARIN 40 MG/0.4 ML (LOVENOX) SYR SC SCH (08:22)
[2021-01-05] MEDS: GABAPENTIN 100 MG (NEURONTIN) CAP PO SCH ×3 (08:22→21:25)
[2021-01-05] MEDS: DOCUSATE SODIUM 100 MG (COLACE) CAP PO SCH ×2 (08:25→21:25)
[2021-01-05] MEDS: SENNA W/DOCUSATE (SENOKOT S) TABLET PO SCH ×2 (08:25→21:25)
[2021-01-05] MEDS: polyethylene glycoL POWDER 17 GM (MIRALAX) PACK PO SCH ×2 (08:25→20:19)
[2021-01-05] MEDS: MILK OF MAGNESIA 400 MG/5 ML 30 ML UDC PO SCH (08:25)
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
--- NOTE | 2021-01-05 11:02 | Occupational Ther Daily Note ---
OT Current Status-Daily Note Subjective Pt laying supine in bed with HOB raised. Pt alert and no c/o pain. Pt agrees to therapy. Mental Status/Objective Patient Orientation: Person, Place, Time, Situation Attachments: Other-See Comments (TLSO, c-collar, LE cast) ADL-Treatment Pt wanted to shave and brush teeth. Pt supine->sit independently EOB. Pt transferred EOB to stand using FWW for stability, ambulated to bathroom using FWW, SBA . Pt transferred to w/c in bathroom using FWW for stability. Pt sat in w/c to do oral care and hygiene independently. Pt cleaned up after shaving face using electric razor. Pt. sit->stand using FWW, ambulated from bathroom to EOB, then stand -> sit at EOB. Therapy Code Descriptions/Definitions Functional [place] Measure: 0=Not Assessed/NA 4=Minimal Assistance 1=Total Assistance 5=Supervision or Setup 2=Maximal Assistance 6=Modified [place] 3=Moderate Assistance 7=Complete IndependenceSCALE: Activities may be completed with or without assistive devices. 0-Ydncmkmotr-bqnirvk completes the activity by him/herself with no assistance from a helper. 5-Set-up or Clean-up Assistance-helper sets up or cleans up; patient completes activity. [place] assists only prior to or following the activity. 4-Supervision or Touching Assistance-helper provides verbal cues and/or anibal violette/steadying and/or contact guard assistance as patient completes activity. Assistance may be provided throughout the activity or intermittently. 3-Partial/Moderate Assistance-helper does LESS THAN HALF the effort. [place] lifts, holds or supports trunk or limbs, but provides less than half the effort. 2-Substantial/Maximal Assistance-helper does MORE THAN HALF the effort. [place] lifts or holds trunk or limbs and provides more than half the effort. 5-Qfsdxnplb-rclvgc does ALL the effort. Patient does none of the effort to complete the activity. Or, the assistance of 2 or more helpers is required for the patient to complete the activity. If activity was not attempted, code reason: 7-Patient Refused. 9-Not Applicable-not attempted and the patient did not perform the activity before the current illness, exacerbation or injury. 10-Not Attempted due to Environmental Limitations-(lack of equipment, weather restraints, etc.). 88-Not Attempted due to Medical Conditions or Safety Concerns. Eating (QC): 6 (Per clinical judgment, pt able to complete independently.) Oral Hygiene (QC): 6 (Patient sitting at sink, independent in brushing teeth and cleaning up after oral care.) Upper Body Dressing (QC): 6 (Using FWW, pt was independent in retrieving UB clothing from closet and completing upper body dressing and don/doffing TLSO.) Lower Body Dressing (QC): 6 (Pt independent in retrieving LB clothing from closet and donning pants and socks.) On/Off Footwear: 6 (Pt independent in donning/doffing socks.) Other Treatment Visit 1- ([id number]) Pt participated in B UE therapeutic exercise with skilled instruction using yellow (light) resistance to improve B UE strength and activity tolerance for completing ADL tasks. Pt completed 15 reps x 2 sets of B bicep curls, B internal/external rotation, B tricep extensions. Pt engaged in standing dynamic balance activity of throwing small balls into a cup at different heights. Cup was set at 2 feet away from pt. Pt made 7/10 at mid height, 5/10 lower/floor level, 9/10 high level. Pt able to adhere to back precautions. After session, pt was supine in bed with call light/phone within reach. All needs met in room. Visit 2- ([id number]) PT/OT cotreat with patient ([id number]). 2 clinicians required for skilled treatment to decrease fall risk, increase mobility and activity tolerance for ADLs. PT focused on transfers and mobility. OT focused on education and safety, functional mobility, and use of adapted equipment and ADL techniques. See PT notes for pt's progress with stairs and car transfer. Pt was educated on proper transfer techniques and equipment in the bathroom. Pt educated on tub/shower transfer using tub transfer bench, FWW and grabbars. Pt demonstrated understanding of transfer by completing independently. After sess ion, pt lying in bed with call light/phone in reach. All needs met in room. OT Short Term Goals Short Term Goals Time Frame: Jan 04, 2021 Eatin Oral hygiene: 4 Toileting hygiene: 3 Shower/bathe self: 3 Upper body dressin Lower body dressin Putting on/taking off footwear: 5 OT Jail Goals Senior Principal Architect Goals Time Frame: Jan 13, 2021 Eating (QC): 6 Oral Hygiene (QC): 6 Toileting Hygiene (QC): 6 Shower/Bathe Self (QC): 5 Upper Body Dressing (QC): 5 Lower Body Dressing (QC): 5 On/Off Footwear (QC): 6 1=Demonstrate adherence to instructed precautions during ADL tasks. 2=Patient will verbalize/demonstrate understanding of assistive devices/modifications for ADL. 3=Patient will improve strength/tolerance for activity to enable patient to perform ADL's. OT Education/Plan Problem List/Assessment Assessment: Decreased UE Strength, Impaired Coordination, Impaired Funct Balance, Impaired Self-Care Skills Discharge Recommendations Plan/Recommendations: Continue POC Treatment Plan/Plan of Care Patient would benefit from OT for education, treatment and training to promote independence in ADL's, mobility, safety and/or upper extremity function for ADL's. Plan of Care: ADL Retraining, Functional Mobility, Group Exercise/Act as Ind, Orthotic Fitting/Training, UE Funct Exercise/Act Treatment Duration: Jan 13, 2021 Frequency: At least 5 of 7 days/Wk (IRF) Estimated Hrs Per Day: 1.5 hours per day Agreement: Yes Rehab Potential: Fair Time/GCodes Start Time: 10:00 Stop Time: 11:00 Total Time Billed (hr/min): 60 Billed Treatment Time 1 Visit- ADL 2 (30 min) Ex (15 min) FA (15 min) 1 visit-FA 2 (30 min) co-treat with PT [id number] PITA MENESES Jan 05, 2021 11:02
[2021-01-05] MEDS: [UNRECOGNIZED DRUG - OTHER] PO SCH (11:33)
[2021-01-05] MEDS: DEXTROAMPHETAMINE PO SCH (11:33)
[2021-01-05] MEDS: AMPHETAMINE PO SCH (11:33)
[2021-01-05] MEDS: ACETAMINOPHEN 325 MG TABLET PO PRN ×2 (13:50→21:25)
--- NOTE | 2021-01-05 14:04 | Physical Therapy Daily Note ---
PT Daily Note-Current Subjective Pt in bed upon arrival and agrees to tx. Pt states pain is getting better, has no c/o pain throughout tx. Mental Status Patient Orientation: Person, Place, Time, Situation Transfers SCALE: Activities may be completed with or without assistive devices. 8-Ixmslmebwm-wgksxwy completes the activity by him/herself with no assistance from a helper. 5-Set-up or Clean-up Assistance-helper sets up or cleans up; patient completes activity. [place] assists only prior to or following the activity. 4-Supervision or Touching Assistance-helper provides verbal cues and/or touching/steadying and/or contact guard assistance as patient completes activity. Assistance may be provided throughout the activity or intermittently. 3-Partial/Moderate Assistance-helper does LESS THAN HALF the effort. [place] lifts, holds or supports trunk or limbs, but provides less than half the effort. 2-Substantial/Maximal Assistance-helper does MORE THAN HALF the effort. [place] lifts or holds trunk or limbs and provides more than half the effort. 8-Ftolaltae-cmjjco does ALL the effort. Patient does none of the effort to complete the activity. Or, the assistance of 2 or more helpers is required for the patient to complete the activity. If activity was not attempted, code reason: 7-Patient Refused. 9-Not Applicable-not attempted and the patient did not perform the activity before the current illness, exacerbation or injury. 10-Not Attempted due to Environmental Limitations-(lack of equipment, weather restraints, etc.). 88-Not Attempted due to Medical Conditions or Safety Concerns. Roll Left & Right (QC): 6 Sit to Lying (QC): 6 Lying to Sitting/Side of Bed(Q: 6 Sit to Stand (QC): 5 Chair/Owm-gg-Dmibm Xfer(QC): 5 Toilet Transfer (QC): 5 Car Transfer (QC): 5 Weight Bearing Right Lower Extremity: Right Non Weight Bearing Gait Training Does the Patient Walk?: Yes Distance: 200' x3, 100' Walk 10 feet (QC): 5 Walk 50 ft with 2 Turns(QC): 5 Walk 150 ft (QC): 5 Walking 10ft/uneven surface-QC: 5 Gait Persons Needed: 1 Gait Assistive Device: FWW Pt has swing to gait w/ NWB R LE. Wheelchair Training Does the Pt Use a Wheelchair?: Yes Wheel 50 ft with 2 turns (QC): 6 Wheel 150 ft (QC): 6 Type of Wheelchair: Manual Stair Training Stair Training: Handrails/: 2 handrails #of Steps: 8 1 Step (curb) (QC): 4 4 Steps (QC): 4 12 Steps (QC): 88 Stairs: Pattern: Hops Pt used 2 handrails and hops w/ L LE as R LE NWB. Pt states at home he has 2 steps w/ 2 hand rails and also a ramp if necessary Balance Picking up an Object (QC): 4 Special Test Comments Pt able to pick objects off ground w/ a offbearer sewer pipe d/t unable to bend/twist back and NWB on R LE Exercises NuStep Minutes: 10 NuStep Workload: 3 Treatments [id number]: Pt completes bed mobility, sit to stand SBA and amb 200' to therapy gym, and instructed to repulping supervisor cone from floor w/ offbearer sewer pipe. Pt completes NuStep at WL of 3 for 10 mins. Pt then amb to mat in gym to complete static standing balance activity while using B UE in all planes. Pt able to hold stance for 15 mins w/ one seated rest break. Pt then amb another 200' and returns to therapy gym. OT enters tx at this time. [id number] Co-treat: Use of 2 skilled clinicians d/t pt low activity tolerance, safety, and transfers. OT focused on ADLs, transfers , UE strengthening, and positioning. PT focused on transfers, mobility, LE strengthening, and positioning. Pt completes 4 steps x2 w/ CGA, pt able to complete 8 steps safely while keeping precautions. Pt then amb to bathtub on ARU to complete shower transfer training w/ shower bench (see OT note). Pt amb to car to complete car t ransfers able to complete SBA. Pt amb to bed in room, left with all needs met, call light in hand. Assessment Current Status: Good Progress Pt can safely complete all mobility and transfers CGA/SBA, including steps. Pt increasing strength, endurance, mobility, and balance. Pt states when he can DC he will have family with him most of the time for assistance. PT Short Term Goals Short Term Goals Time Frame: Jan 18, 2021 Roll Left & Right: 4 Sit to lyin Lying to sitting on side of be: 4 Sit to stand: 4 Chair/emz-bl-whamk transfer: 4 Toilet transfer: 4 Car transfer: 4 Walk 10 feet: 3 Walk 50 feet with two turns: 3 Walk 150 feet: 3 Walking 10ft on uneven surface: 3 1 step (curb): 3 4 steps: 3 Picking up objects: 3 Does pt use a wc or scooter: Yes Wheel 50ft w/2 turns: 6 Wheel 150 feet: 6 Type: Manual PT Fpc Goals Mail Processing Clerk Goals PT Fpc Goals Time Frame: Feb 01, 2021 Roll Left & Right (QC): 5 Sit to Lying (QC): 5 Lying-Sitting on Side/Bed(QC): 5 Sit to Stand (QC): 5 Chair/Jzg-ka-Rvtun Xfer(QC): 5 Toilet Transfer (QC): 5 Car Transfer (QC): 5 Does the Patient Walk: Yes Walk 10 feet (QC): 5 Walk 50ft with 2 Turns (QC): 5 Walk 150 ft (QC): 4 Walking 10ft on Uneven Surface: 4 1 Step (curb) (QC): 4 4 Steps (QC): 4 12 Steps (QC): 4 Picking up an Object (QC): 4 Does the Pt use WC or Scooter?: Yes Wheel 50 feet with 2 turns (QC: 6 Type: Manual Wheel 150 feet: 6 Type: Manual PT Plan Treatment/Plan Treatment Plan: Continue Plan of Care Treatment Plan: Bed Mobility, Education, Functional Activity Janki, Functional Strength, Group Therapy, Gait, Safety, Therapeutic Exercise, Transfers Treatment Duration: Mar 08, 2021 Frequency: At least 5 of 7 days/Wk (IRF) Estimated Hrs Per Day: 1.5 hours per day Patient and/or Family Agrees t: Yes Time/GCodes Time In: 1230 Time Out: 1400 Total Billed Treatment Time: 90 Total Billed Treatment 1, GT x3, FA x2, EX [place],MOIZ BEAM PRESS OPERATOR Jan 05, 2021 14:04
[2021-01-05 19:38] VITALS: BP 116/67
[2021-01-05] MEDS: MELATONIN 3 MG TABLET PO PRN (21:25)
[2021-01-06 07:55] VITALS: BP 121/72
[2021-01-06] MEDS: METHOCARBAMOL 750 MG (ROBAXIN) TAB PO SCH ×3 (08:05→20:36)
[2021-01-06] MEDS: SENNA W/DOCUSATE (SENOKOT S) TABLET PO SCH ×2 (08:05→20:38)
[2021-01-06] MEDS: ENOXAPARIN 40 MG/0.4 ML (LOVENOX) SYR SC SCH (08:05)
[2021-01-06] MEDS: GABAPENTIN 100 MG (NEURONTIN) CAP PO SCH ×3 (08:05→20:36)
[2021-01-06] MEDS: ACETAMINOPHEN 325 MG TABLET PO PRN ×2 (08:05→20:36)
[2021-01-06] MEDS: DULoxetine 30 MG (CYMBALTA) CAP PO SCH ×2 (08:05→20:35)
[2021-01-06] MEDS: DOCUSATE SODIUM 100 MG (COLACE) CAP PO SCH ×2 (08:05→20:36)
[2021-01-06] MEDS: DEXTROAMPHETAMINE PO SCH (08:36)
[2021-01-06] MEDS: AMPHETAMINE PO SCH (08:36)
[2021-01-06] MEDS: MILK OF MAGNESIA 400 MG/5 ML 30 ML UDC PO SCH (08:36)
[2021-01-06] MEDS: polyethylene glycoL POWDER 17 GM (MIRALAX) PACK PO SCH ×2 (08:36→20:38)
[2021-01-06] MEDS: [UNRECOGNIZED DRUG - OTHER] PO SCH (08:36)
--- NOTE | 2021-01-06 09:54 | Occupational Ther Daily Note ---
OT Current Status-Daily Note Subjective Pt sitting EOB, alert. No c/o pain. Pt agrees to therapy. Mental Status/Objective Patient Orientation: Person, Place, Time, Situation Attachments: Other-See Comments (TLSO, c-collar, LE cast) ADL-Treatment Pt agrees to shower. All incisions and LE cast covered. Pt sit->stand SBA using FWW for stability, ambulated to shower using FWW with supervision. Pt trans ferred to BSC in shower using FWW for stability with supervision. Pt doffed UB/LB clothing Independently. Set up shower independently. S.O. set up clothing from closet to bedside. Pt put clothing on FWW front and took to bathroom when ambulated using FWW to shower. After shower, pt donned UB/LB clothing Independently. Pt ambulated using FWW to w/c to complete oral care and grooming sink side in bathroom with supervision for transfer only. After session, pt sitting EOB with call light/phone within reach. All needs met in room. Therapy Code Descriptions/Definitions Functional [place] Measure: 0=Not Assessed/NA 4=Minimal Assistance 1=Total Assistance 5=Supervision or Setup 2=Maximal Assistance 6=Modified [place] 3=Moderate Assistance 7=Complete IndependenceSCALE: Activities may be completed with or without assistive devices. 6-Huilydwbar-ovfvpwk completes the activity by him/herself with no assistance f rom a helper. 5-Set-up or Clean-up Assistance-helper sets up or cleans up; patient completes activity. [place] assists only prior to or following the activity. 4-Supervision or Touching Assistance-helper provides verbal cues and/or touching/steadying and/or contact guard assistance as patient completes activity. Assistance may be provided throughout the activity or intermittently. 3-Partial/Moderate Assistance-helper does LESS THAN HALF the effort. [place] lifts, holds or supports trunk or limbs, but provides less than half the effort. 2-Substantial/Maximal Assistance-helper does MORE THAN HALF the effort. [place] lifts or holds trunk or limbs and provides more than half the effort. 7-Nfyyeewaa-mbhxll does ALL the effort. Patient does none of the effort to complete the activity. Or, the assistance of 2 or more helpers is required for the patient to complete the activity. If activity was not attempted, code reason: 7-Patient Refused. 9-Not Applicable-not attempted and the patient did not perform the activity before the current illness, exacerbation or injury. 10-Not Attempted due to Environmental Limitations-(lack of equipment, weather restraints, etc.). 88-Not Attempted due to Medical Conditions or Safety Concerns. Oral Hygiene (QC): 6 (Patient brushed teeth and cleaned area Independently.) Bathing Location: L Arm, R Arm, L Upper Leg, R Upper Leg, L Lower Leg (including foot), R Lower Leg (including foot) (In cast and covered.), Chest, Abdomen, Buttocks, Perineal Area Shower/Bathe Self (QC): 6 (Pt was Independent in showering self with no set up.) Upper Body Dressing (QC): 3 (Pt Independent in don/doffing shirt. Pt only needs assist with c-collar.) Lower Body Dressing (QC): 6 (Pt Independent in LB dressing of don/doffing pants.) On/Off Footwear: 6 (Pt Independent in don/doffing socks) OT Short Term Goals Short Term Goals Time Frame: Jan 04, 2021 Eatin Oral hygiene: 4 Toileting hygiene: 3 Shower/bathe self: 3 Upper body dressin Lower body dressin Putting on/taking off footwear: 5 OT Prison Goals Prison Goals Time Frame: Jan 13, 2021 Eating (QC): 6 Oral Hygiene (QC): 6 Toileting Hygiene (QC): 6 Shower/Bathe Self (QC): 5 Upper Body Dressing (QC): 5 Lower Body Dressing (QC): 5 On/Off Footwear (QC): 6 1=Demonstrate adherence to instructed precautions during ADL tasks. 2=Patient will verbalize/demonstrate understanding of assistive devices/mod ifications for ADL. 3=Patient will improve strength/tolerance for activity to enable patient to perform ADL's. OT Education/Plan Problem List/Assessment Assessment: Impaired Self-Care Skills Discharge Recommendations Plan/Recommendations: Continue POC Treatment Plan/Plan of Care Patient would benefit from OT for education, treatment and training to promote independence in ADL's, mobility, safety and/or upper extremity function for ADL's. Plan of Care: ADL Retraining, Functional Mobility, Group Exercise/Act as Ind, Orthotic Fitting/Training, UE Funct Exercise/Act Treatment Duration: Jan 13, 2021 Frequency: At least 5 of 7 days/Wk (IRF) Estimated Hrs Per Day: 1.5 hours per day Agreement: Yes Rehab Potential: Fair Time/GCodes Start Time: 09:00 Stop Time: 10:00 Total Time Billed (hr/min): 60 Billed Treatment Time 1 Visit- ADL 4 (60 min) PITA MENESES Jan 06, 2021 09:54
--- NOTE | 2021-01-06 11:01 | Physical Therapy Daily Note ---
PT Daily Note-Current Subjective Pt in bed upon arrival with S.O. in room and agrees to PT. Pt has no c/o pain at this time Mental Status Patient Orientation: Person, Place, Time, Situation Transfers SCALE: Activities may be completed with or without assistive devices. 5-Cpfetbeokc-wmabdkz completes the activity by him/herself with no assistance from a helper. 5-Set-up or Clean-up Assistance-helper sets up or cleans up; patient completes activity. [place] assists only prior to or following the activity. 4-Supervision or Touching Assistance-helper provides verbal cues and/or touching/steadying and/or contact guard assistance as patient completes activity. Assistance may be provided throughout the activity or intermittently. 3-Partial/Moderate Assistance-helper does LESS THAN HALF the effort. [place] lifts, holds or supports trunk or limbs, but provides less than half the effort. 2-Substantial/Maximal Assistance-helper does MORE THAN HALF the effort. [place] lifts or holds trunk or limbs and provides more than half the effort. 4-Rawjcttxd-qagytg does ALL the effort. Patient does none of the effort to complete the activity. Or, the assistance of 2 or more helpers is required for the patient to complete the activity. If activity was not attempted, code reason: 7-Patient Refused. 9-Not Applicable-not attempted and the patient did not perform the activity before the current illness, exacerbation or injury. 10-Not Attempted due to Environmental Limitations-(lack of equipment, weather restraints, etc.). 88-Not Attempted due to Medical Conditions or Safety Concerns. Roll Left & Right (QC): 6 Sit to Lying (QC): 6 Lying to Sitting/Side of Bed(Q: 6 Sit to Stand (QC): 5 Chair/Qye-ct-Djapb Xfer(QC): 5 Weight Bearing Right Lower Extremity: Right Non Weight Bearing Gait Training Does the Patient Walk?: Yes Distance: 200' Walk 10 feet (QC): 5 Walk 50 ft with 2 Turns(QC): 5 Walk 150 ft (QC): 5 Gait Assistive Device: FWW Pt has swing to gait w/ no deviations at this time Stair Training Stair Training: Handrails/: 2 handrails #of Steps: 12 1 Step (curb) (QC): 5 4 Steps (QC): 5 12 Steps (QC): 5 Stairs: Pattern: Hops Pt states he has 2 handrails at home so is completing stair training with 2 handrails Treatments Pt completes bed mobility, sits EOB to don TLSO SBA. Pt sit to stand SBA and amb 200', then another 150' on ARU. Pt enters therapy gym and completes stair training SBA, pt able to do so safely w/o any A. Pt has rest break the amb another 50' and returns to gym. Pt completes dynamic standing balance activity while maintaining NWB on R LE and unsupported from B UE w/ SBA. Pt able to hold for a total of 15 minutes. Pt then amb another 200' and returns to bed. Pt remains in bed with all needs met, call light in hand. Assessment Current Status: Good Progress Pt safely able to amb, complete mobility, and stair training. Increasing strength, endurance, and mobility PT Short Term Goals Short Term Goals Time Frame: Jan 18, 2021 Roll Left & Right: 4 Sit to lyin Lying to sitting on side of be: 4 Sit to stand: 4 Chair/nwr-uo-nwzsg transfer: 4 Toilet transfer: 4 Car transfer: 4 Walk 10 feet: 3 Walk 50 feet with two turns: 3 Walk 150 feet: 3 Walking 10ft on uneven surface: 3 1 step (curb): 3 4 steps: 3 Picking up objects: 3 Does pt use a wc or scooter: Yes Wheel 50ft w/2 turns: 6 Wheel 150 feet: 6 Type: Manual PT Alf Goals Public Affairs Manager Goals PT Public Affairs Manager Goals Time Frame: Feb 01, 2021 Roll Left & Right (QC): 5 Sit to Lying (QC): 5 Lying-Sitting on Side/Bed(QC): 5 Sit to Stand (QC): 5 Chair/Hjh-ys-Srdfk Xfer(QC): 5 Toilet Transfer (QC): 5 Car Transfer (QC): 5 Does the Patient Walk: Yes Walk 10 feet (QC): 5 Walk 50ft with 2 Turns (QC): 5 Walk 150 ft (QC): 4 Walking 10ft on Uneven Surface: 4 1 Step (curb) (QC): 4 4 Steps (QC): 4 12 Steps (QC): 4 Picking up an Object (QC): 4 Does the Pt use WC or Scooter?: Yes Wheel 50 feet with 2 turns (QC: 6 Type: Manual Wheel 150 feet: 6 Type: Manual PT Plan Treatment/Plan Treatment Plan: Continue Plan of Care Treatment Plan: Bed Mobility, Education, Functional Activity Janki, Functional Strength, Group Therapy, Gait, Safety, Therapeutic Exercise, Transfers Treatment Duration: Mar 08, 2021 Frequency: At least 5 of 7 days/Wk (IRF) Estimated Hrs Per Day: 1.5 hours per day Patient and/or Family Agrees t: Yes Time/GCodes Time In: 1000 Time Out: 1100 Total Billed Treatment Time: 60 Total Billed Treatment 1, GT x2, FA, NM MOIZ [place] HAND BASEBALL SEWER Jan 06, 2021 11:01
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
[2021-01-06] MEDS ORDERED: METH-732 PO (12:06)
[2021-01-06] MEDS ORDERED: DULO30CA3 PO (12:06)
[2021-01-06] MEDS ORDERED: GABA-486 PO (12:06)
[2021-01-06] MEDS ORDERED: LEVO750T39 PO (12:06)
[2021-01-06] MEDS ORDERED: ASPI-1238 PO (12:06)
[2021-01-06] MEDS ORDERED: OXC5T PO (12:06)
[2021-01-06] MEDS ORDERED: ALPR0.5T7 PO (12:06)
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
--- NOTE | 2021-01-06 13:29 | Physical Therapy Daily Note ---
PT Daily Note-Current Subjective Pt in bed w/ S.O. in room and agrees to tx. Pt states he is excited and ready to DC. Mental Status Patient Orientation: Person, Place, Time, Situation Transfers SCALE: Activities may be completed with or without assistive devices. 4-Xmiytwptvp-wtqhikx completes the activity by him/herself with no assistance from a helper. 5-Set-up or Clean-up Assistance-helper sets up or cleans up; patient completes activity. [place] assists only prior to or following the activity. 4-Supervision or Touching Assistance-helper provides verbal cues and/or touching/steadying and/or contact guard assistance as patient completes activity. Assistance may be provided throughout the activity or intermittently. 3-Partial/Moderate Assistance-helper does LESS THAN HALF the effort. [place] lifts, holds or supports trunk or limbs, but provides less than half the effort. 2-Substantial/Maximal Assistance-helper does MORE THAN HALF the effort. [place] lifts or holds trunk or limbs and provides more than half the effort. 0-Ovgmluudx-cnbpue does ALL the effort. Patient does none of the effort to complete the activity. Or, the assistance of 2 or more helpers is required for the patient to complete the activity. If activity was not attempted, code reason: 7-Patient Refused. 9-Not Applicable-not attempted and the patient did not perform the activity before the current illness, exacerbation or injury. 10-Not Attempted due to Environmental Limitations-(lack of equipment, weather restraints, etc.). 88-Not Attempted due to Medical Conditions or Safety Concerns. Roll Left & Right (QC): 6 Sit to Lying (QC): 6 Lying to Sitting/Side of Bed(Q: 6 Sit to Stand (QC): 5 Chair/Cfw-ww-Kxeai Xfer(QC): 5 Toilet Transfer (QC): 5 Car Transfer (QC): 5 Weight Bearing Right Lower Extremity: Right Non Weight Bearing Gait Training Does the Patient Walk?: Yes Distance: 200' x2 Walk 10 feet (QC): 5 Walk 50 ft with 2 Turns(QC): 5 Walk 150 ft (QC): 5 Walking 10ft/uneven surface-QC: 5 Gait Assistive Device: FWW Wheelchair Training Does the Pt Use a Wheelchair?: Yes Wheel 50 ft with 2 turns (QC): 6 Wheel 150 ft (QC): 6 Type of Wheelchair: Manual Stair Training Stair Training: Handrails/: 2 handrails #of Steps: 12 1 Step (curb) (QC): 5 4 Steps (QC): 5 12 Steps (QC): 5 Stairs: Pattern: Hops Balance Picking up an Object (QC): 5 Special Test Comments Pt able to brass pickler object with use of grabber Treatments Pt completes bed mobility and sits EOB. Pt amb 200' and completes functional gait activity, navigating cones in tight areas and multiple turns. Pt then completes stairs, picks up an object, and car transfer. Pt returns to room and goes into recliner. Pt remains in recliner with all needs met and call light in hand. Assessment Current Status: Good Progress Pt able to safely complete all transfers, mobility, and balance activities SBA. PT Short Term Goals Short Term Goals Time Frame: Jan 18, 2021 Roll Left & Right: 4 Sit to lyin Lying to sitting on side of be: 4 Sit to stand: 4 Chair/djh-ad-zwmkr transfer: 4 Toilet transfer: 4 Car transfer: 4 Walk 10 feet: 3 Walk 50 feet with two turns: 3 Walk 150 feet: 3 Walking 10ft on uneven surface: 3 1 step (curb): 3 4 steps: 3 Picking up objects: 3 Does pt use a wc or scooter: Yes Wheel 50ft w/2 turns: 6 Wheel 150 feet: 6 Type: Manual PT Custodial Goals Kaitara Taraka Goals PT Custodial Goals Time Frame: Feb 01, 2021 Roll Left & Right (QC): 5 Sit to Lying (QC): 5 Lying-Sitting on Side/Bed(QC): 5 Sit to Stand (QC): 5 Chair/Pcb-bu-Txhsq Xfer(QC): 5 Toilet Transfer (QC): 5 Car Transfer (QC): 5 Does the Patient Walk: Yes Walk 10 feet (QC): 5 Walk 50ft with 2 Turns (QC): 5 Walk 150 ft (QC): 4 Walking 10ft on Uneven Surface: 4 1 Step (curb) (QC): 4 4 Steps (QC): 4 12 Steps (QC): 4 Picking up an Object (QC): 4 Does the Pt use WC or Scooter?: Yes Wheel 50 feet with 2 turns (QC: 6 Type: Manual Wheel 150 feet: 6 Type: Manual PT Plan Treatment/Plan Treatment Plan: Continue Plan of Care Treatment Plan: Bed Mobility, Education, Functional Activity Janki, Functional Strength, Group Therapy, Gait, Safety, Therapeutic Exercise, Transfers Treatment Duration: Mar 08, 2021 Frequency: At least 5 of 7 days/Wk (IRF) Estimated Hrs Per Day: 1.5 hours per day Patient and/or Family Agrees t: Yes Time/GCodes Time In: 1300 Time Out: 1330 Total Billed Treatment Time: 30 Total Billed Treatment 1, VÍCTOR, MOIZ 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
--- NOTE | 2021-01-06 14:29 | Occupational Ther Daily Note ---
OT Current Status-Daily Note Subjective Pt sitting in recliner. No c/o pain. Pt agrees to therapy. Mental Status/Objective Patient Orientation: Person, Place, Time, Situation Attachments: Other-See Comments (TLSO, c-collar, LE cast) ADL-Treatment Therapy Code Descriptions/Definitions Functional [place] Measure: 0=Not Assessed/NA 4=Minimal Assistance 1=Total Assistance 5=Supervision or Setup 2=Maximal Assistance 6=Modified [place] 3=Moderate Assistance 7=Complete IndependenceSCALE: Activities may be completed with or without assistive devices. 4-Movfymdjbg-fytmsxa completes the activity by him/herself with no assistance from a helper. 5-Set-up or Clean-up Assistance-helper sets up or cleans up; patient completes activity. [place] assists only prior to or following the activity. 4-Supervision or Touching Assistance-helper provides verbal cues and/or touching/steadying and/or contact guard assistance as patient completes acti vity. Assistance may be provided throughout the activity or intermittently. 3-Partial/Moderate Assistance-helper does LESS THAN HALF the effort. [place] lifts, holds or supports trunk or limbs, but provides less than half the effort. 2-Substantial/Maximal Assistance-helper does MORE THAN HALF the effort. [place] lifts or holds trunk or limbs and provides more than half the effort. 6-Xoyuknxhv-jktoya does ALL the effort. Patient does none of the effort to complete the activity. Or, the assistance of 2 or more helpers is required for the patient to complete the activity. If activity was not attempted, code reason: 7-Patient Refused. 9-Not Applicable-not attempted and the patient did not perform the activity before the current illness, exacerbation or injury. 10-Not Attempted due to Environmental Limitations-(lack of equipment, weather restraints, etc.). 88-Not Attempted due to Medical Conditions or Safety Concerns. Other Treatment Pt. sit->stand from recliner to FWW SBA, ambulated to therapy room using FWW SBA. Pt participated in nut/bolt activity with B hands while seated demonstrating fine motor skills of pinch grasp, reaching across midline, and coordination to do ADL and IADL tasks. Pt engaged in nut/bolt activity while standing using FWW for stability SBA. Tolerated well and no balance break noted. After session, pt supine in bed with call light/phone within reach. All needs met in room. 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 2=Patient will verbalize/demonstrate understanding of assistive devices/modifi cations for ADL. 3=Patient will improve strength/tolerance for activity to enable patient to perform ADL's. OT Education/Plan Problem List/Assessment Assessment: Impaired Coordination, Impaired Funct Balance Discharge Recommendations Plan/Recommendations: Continue POC Treatment Plan/Plan of Care Patient would benefit from OT for education, treatment and training to promote independence in ADL's, mobility, safety and/or upper extremity function for ADL's. Plan of Care: ADL Retraining, Functional Mobility, Group Exercise/Act as Ind, Orthotic Fitting/Training, UE Funct Exercise/Act Treatment Duration: Jan 13, 2021 Frequency: At least 5 of 7 days/Wk (IRF) Estimated Hrs Per Day: 1.5 hours per day Agreement: Yes Rehab Potential: Fair Time/GCodes Start Time: 13:30 Stop Time: 14:00 Total Time Billed (hr/min): 30 Billed Treatment Time 1 Visit- FA 2 (30 min) PITA MENESES Jan 06, 2021 14:29
[2021-01-06 20:00] VITALS: BP 117/77
[2021-01-06] MEDS: MELATONIN 3 MG TABLET PO PRN (20:36)
[2021-01-07 06:38] LABS: BASOPHILS % (AUTO) 1 % (0-10); EOSINOPHILS # (AUTO) 0.3 10^3/uL (0.0-0.3); EOSINOPHILS % (AUTO) 6 % (0-10); HEMATOCRIT 35 % (40-54); HEMOGLOBIN 11.1 g/dL (13.3-17.7); LYMPHOCYTES # (AUTO) 1.3 10^3/uL (1.0-4.0); LYMPHOCYTES % (AUTO) 29 % (12-44); MEAN CORPUSCULAR HEMOGLOBIN 28 pg (25-34); MEAN CORPUSCULAR HGB CONC 32 g/dL (32-36); MEAN CORPUSCULAR VOLUME 87 fL (80-99); MEAN PLATELET VOLUME 8.3 fL (9.0-12.2); MONOCYTES # (AUTO) 0.5 10^3/uL (0.0-1.0); MONOCYTES % (AUTO) 11 % (0-12); NEUTROPHILS # (AUTO) 2.4 10^3/uL (1.8-7.8); NEUTROPHILS % (AUTO) 53 % (42-75); PLATELET COUNT 385 10^3/uL (130-400); WHITE BLOOD COUNT 4.6 10^3/uL (4.3-11.0)
[2021-01-07 06:53] LABS: ALBUMIN 3.5 GM/DL (3.2-4.5); POTASSIUM 4.4 MMOL/L (3.6-5.0)
[2021-01-07 06:54] LABS: CALCIUM 9.1 MG/DL (8.5-10.1)
[2021-01-07 06:56] LABS: TOTAL PROTEIN 6.8 GM/DL (6.4-8.2)
[2021-01-07 06:57] LABS: BILIRUBIN,TOTAL 0.4 MG/DL (0.1-1.0)
[2021-01-07 06:59] LABS: CREATININE SERUM 0.71 MG/DL (0.60-1.30)
[2021-01-07 07:30] VITALS: BP 121/74
[2021-01-07] MEDS: DOCUSATE SODIUM 100 MG (COLACE) CAP PO SCH (08:04)
[2021-01-07] MEDS: ENOXAPARIN 40 MG/0.4 ML (LOVENOX) SYR SC SCH (08:04)
[2021-01-07] MEDS: METHOCARBAMOL 750 MG (ROBAXIN) TAB PO SCH (08:04)
[2021-01-07] MEDS: DULoxetine 30 MG (CYMBALTA) CAP PO SCH (08:04)
[2021-01-07] MEDS: GABAPENTIN 100 MG (NEURONTIN) CAP PO SCH (08:04)
[2021-01-07] MEDS: SENNA W/DOCUSATE (SENOKOT S) TABLET PO SCH (08:05)
[2021-01-07] MEDS: DEXTROAMPHETAMINE PO SCH (08:12)
[2021-01-07] MEDS: [UNRECOGNIZED DRUG - OTHER] PO SCH (08:12)
[2021-01-07] MEDS: AMPHETAMINE PO SCH (08:12)
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
== END 2021-01-07 11:30 | disposition home health service (06) | DRG 560 ==
PROVIDERS: ADMIT Internal Medicine; ATTEND Internal Medicine
DX: S12.300D Unspecified displaced fracture of fourth cervical vertebra, subsequent encounter for fracture with routine healing (principal); T81.31XA Disruption of external operation (surgical) wound, not elsewhere classified, initial encounter; R45.851 Suicidal ideations; T81.41XA Infection following a procedure, superficial incisional surgical site, initial encounter; S13.4XXD Sprain of ligaments of cervical spine, subsequent encounter; S24.103D Unspecified injury at T7-T10 level of thoracic spinal cord, subsequent encounter; S22.079D Unspecified fracture of T9-T10 vertebra, subsequent encounter for fracture with routine healing; S82.841D Displaced bimalleolar fracture of right lower leg, subsequent encounter for closed fracture with routine healing; S22.49XD Multiple fractures of ribs, unspecified side, subsequent encounter for fracture with routine healing; S31.119D Laceration without foreign body of abdominal wall, unspecified quadrant without penetration into peritoneal cavity, subsequent encounter; K59.00 Constipation, unspecified; F41.9 Anxiety disorder, unspecified; F32.A Depression, unspecified; F90.9 Attention-deficit hyperactivity disorder, unspecified type; Z87.891 Personal history of nicotine dependence; Z98.1 Arthrodesis status; V44.5XXD Car driver injured in collision with heavy transport vehicle or bus in traffic accident, subsequent encounter; F10.20 Alcohol dependence, uncomplicated; A49.8 Other bacterial infections of unspecified site; Z23 Encounter for immunization
CPT/HCPCS: 36415; 80053; 82977; 84443; 85025; 87070; 87077; 87186; 87205; 94760